=== PATIENT | male | born 1970 | race Caucasian/White ===

== ENCOUNTER 2016-12-14 09:26 | Emergency (ER) | payer BC ==
[2016-12-14 09:37] VITALS: BP 145/87
--- NOTE | 2016-12-14 10:34 | UC ---
Complaint Male HPI - HPI Summary HPI Summary: The patient comes in today for: 1. "I want to be tested for herpes": Onset: He has no symptoms. Palliative/provocative: Not applicable. Quality: Not applicable. Region: Genital Severity: n/a Time: n/a Associated symptoms: None. * - History of Current Complaint Chief Complaint: UCGeneralIllness Stated Complaint: PERSONAL Time Seen by Provider: 12/14/16 10:23 Hx Obtained From: Patient - Allergies/Home Medications Allergies/Adverse Reactions: Allergies Allergy/AdvReac Type Severity Reaction Status Date / Time No Known Allergies Allergy Verified 08/01/15 10:43 PMH/Surg Hx/FS Hx/Imm Hx Previously Healthy: No - Lower back pain. Respiratory History: Asthma - Surgical History Surgical History: None - Family History Known Family History: Positive: Cardiac Disease, Hypertension Family History: Unspecified "breathing and heart" problems - Social History Occupation: Employed Full-time Alcohol Use: Daily Alcohol Amount: "six pack a night" Substance Use Type: None Smoking Status (MU): Heavy Every Day Tobacco Smoker Type: Cigarettes Amount Used/How Often: 1 PPD Length of Time of Smoking/Using Tobacco: 30+ Years Have You Smoked in the Last Year: Yes When Did the Patient Quit Smoking/Using Tobacco: 04/23/15 - Immunization History Most Recent Influenza Vaccination: March 2016 Review of Systems Constitutional: Negative Skin: Negative Eyes: Negative ENT: Negative Respiratory: Negative Cardiovascular: Negative Gastrointestinal: Negative Genitourinary: Negative All Other Systems Reviewed And Are Negative: Yes Physical Exam Triage Information Reviewed: Yes Appearance: Well-Appearing, No Pain Distress, Well-Nourished Vital Signs: Initial Vital Signs Temp 97.7 F 12/14/16 09:30 Pulse 118 12/14/16 09:30 Resp 18 12/14/16 09:30 BP 145/87 12/14/16 09:30 Pulse Ox 97 12/14/16 09:30 Vital Signs Reviewed: Yes Eyes: Positive: Conjunctiva Clear. Negative: Discharge ENT: Positive: Hearing grossly normal. Negative: Pharyngeal erythema, Nasal congestion, Nasal drainage, TM bulging, TM dull, TM red, Tonsillar swelling, Tonsillar exudate Dental: Negative: Gross Decay/Caries @, Dental Fracture @ Neck: Positive: Supple, Nontender, No Lymphadenopathy. Negative: Nuchal Rigidity Respiratory: Positive: Lungs clear, No respiratory distress, No accessory muscle use. Negative: Crackles, Wheezing Cardiovascular: Positive: RRR, No Murmur Abdomen Description: Positive: Nontender, No Organomegaly, Soft. Negative: Distended, Guarding Musculoskeletal: Positive: Strength Intact, ROM Intact Neurological: Positive: Alert, Muscle Tone Normal Psychological: Positive: Age Appropriate Behavior, Consolable Skin: Negative: rashes, breakdown UC Physical Exam Vital Signs On Initial Exam: Initial Vitals Temp Pulse Resp BP Pulse Ox 97.7 F 118 18 145/87 97 12/14/16 09:30 12/14/16 09:30 12/14/16 09:30 12/14/16 09:30 12/14/16 09:30 - Genitalia Exam Male Genitalia: Other - Patient declined genital exam as he is not having any problems in that area at this time. Complaint Male Course/Dx - Course Course Of Treatment: The patient comes in today because his ex-girlfriend was told by her ex-boyfriend's present girlfriend that the ex-boyfriend has had herpes for years. Even though the patient's ex-girlfriend states that she has had "blisters down below" in the past, she "freaked out" when she was recently "tested for herpes" and told to be positive. The patient has not had any problems with genital lesions. Significant time was taken explaining the value of testing for herpes particularly in light of his history of having cold sores on his lips "every winter." After this discussion and answering all his questions, he did not want any blood tests for herpes-just GC and chlamydia. - Differential Dx/Diagnosis Provider Diagnoses: Possible STD exposure. Discharge - Discharge Plan Condition: Stable Disposition: HOME Patient Education Materials: Safe Sex (ED) Referrals: Non Staff,Doctor [Primary Care Provider] - If Needed (Please see your primary care provider as needed. If you have any problems, be seen again at that time.)
== END 2016-12-14 11:01 | disposition home or self-care (01) ==
LOC: UCCORT 09:26
DX: Z20.2 Contact with and (suspected) exposure to infections with a predominantly sexual mode of transmission (principal)
CPT/HCPCS: 87491; 87591; 99211; G0463

== ENCOUNTER 2017-02-10 09:31 | Emergency (ER) | payer BC ==
[2017-02-10 09:39] VITALS: BP 125/83
[2017-02-10] MEDS ORDERED: Albuterol/Ipratropium NEB.SOL* Albuterol 2.5 MG/Ipratropium 0.5 MG 3 ML INH ONE (09:42)
[2017-02-10] MEDS ORDERED: predniSONE TAB* 20 MG PO ONE (09:42)
--- NOTE | 2017-02-10 09:42 | UC ---
Respiratory Complaint HPI - HPI Summary HPI Summary: 46 YEAR OLD MALE PRESENTS WITH COMPLAINS OF COUGH AND WHEEZING. - History of Current Complaint Chief Complaint: UCRespiratory Stated Complaint: DIFFICULTY BREATHING Time Seen by Provider: 02/10/17 09:42 - Allergies/Home Medications Allergies/Adverse Reactions: Allergies Allergy/AdvReac Type Severity Reaction Status Date / Time No Known Allergies Allergy Verified 02/10/17 09:39 Home Medications: Home Medications Albuterol 0.5% CONC NEB.NORMA* 1 mg .SEE ORDER Q6H PRN 02/10/17 [History Confirmed 02/10/17] PMH/Surg Hx/FS Hx/Imm Hx Previously Healthy: Yes - Surgical History Surgical History: None - Family History Known Family History: Positive: Unknown, Cardiac Disease, Hypertension Family History: Unspecified "breathing and heart" problems - Social History Alcohol Use: Daily Alcohol Amount: "six pack a night" Substance Use Type: None Smoking Status (MU): Heavy Every Day Tobacco Smoker Type: Cigarettes Amount Used/How Often: 1 PPD Length of Time of Smoking/Using Tobacco: 30+ Years Have You Smoked in the Last Year: Yes When Did the Patient Quit Smoking/Using Tobacco: 04/23/15 Household Exposure Type: Cigars - Immunization History Most Recent Influenza Vaccination: March 2016 Review of Systems Constitutional: Negative Skin: Negative Eyes: Negative ENT: Sore Throat, Nasal Discharge, Sinus Congestion Respiratory: Cough Cardiovascular: Negative Gastrointestinal: Negative Genitourinary: Negative Motor: Negative Neurovascular: Negative Musculoskeletal: Negative Neurological: Negative Psychological: Negative All Other Systems Reviewed And Are Negative: Yes Physical Exam Triage Information Reviewed: Yes Vital Signs: Initial Vital Signs Temp 36.6 C 02/10/17 09:35 Pulse 108 02/10/17 09:35 Resp 20 02/10/17 09:35 BP 125/83 02/10/17 09:35 Pulse Ox 97 02/10/17 09:35 Eye Exam: Normal ENT: Positive: Pharyngeal erythema, Nasal congestion, Nasal drainage Dental Exam: Normal Neck exam: Normal Neck: Positive: 1 Respiratory: Positive: Wheezing Cardiovascular Exam: Normal Abdominal Exam: Normal Musculoskeletal Exam: Normal Neurological Exam: Normal Psychological Exam: Normal Skin Exam: Normal UC Diagnostic Evaluation - Laboratory O2 Sat by Pulse Oximetry: 97 Respiratory Course/Dx - Differential Dx/Diagnosis Provider Diagnoses: ASTHMA EXACERBATION Discharge - Discharge Plan Condition: Stable Disposition: HOME Prescriptions: Albuterol HFA INHALER* [Ventolin HFA Inhaler*] 2 puff INH Q6H PRN #1 mdi PRN Reason: Wheezing Azithromyxin MARVA (NF) [Z-Marva (Zithromax) 250 mg tabs #6] 2 tab PO .TODAY, THEN 1 DAILY #6 tab guaiFENesin/CODIEN 100MG-10MG* [Robitussin AC 100Mg-10Mg*] 5 ml PO Q6H PRN #120 ml MDD 20 ML PRN Reason: Cough predniSONE TAB* [Deltasone TAB*] 40 mg PO DAILY #10 tab Patient Education Materials: Asthma (ED) Forms: *Work Release Referrals: Non Staff,Doctor [Primary Care Provider] - If Needed
--- NOTE | 2017-02-10 10:16 | RAD ---
INDICATION: 2 days cough, shortness of breath. Negative for fever. COMPARISON: October 23, 2015 TECHNIQUE: Dual energy PA and routine lateral views of the chest were obtained. REPORT: Mildly elevated lung volumes. No focal pulmonary lesion, compelling alveolar consolidation, pleural effusion, pneumothorax. The heart, pulmonary vasculature, and mediastinal contours are unremarkable. Healed fractures of the RIGHT eighth and ninth ribs posteriorly. No acute rib fracture evident. IMPRESSION: 1. Mildly elevated lung volumes suggest potential chronic obstructive pulmonary disease given history of tobacco use. 2. No evidence for pneumonia.
== END 2017-02-10 10:34 | disposition home or self-care (01) ==
LOC: UCCORT 09:31
DX: J45.901 Unspecified asthma with (acute) exacerbation (principal); Z87.891 Personal history of nicotine dependence
CPT/HCPCS: 71020; 99212; A9270-GY; G0463; J7512

== ENCOUNTER 2017-05-23 08:39 | Emergency (ER) | payer SELFPAY ==
[2017-05-23 08:52] VITALS: BP 163/94
[2017-05-23] MEDS ORDERED: Ibuprofen TAB* 600 MG PO ONE (10:12)
--- NOTE | 2017-05-23 10:20 | UC ---
Upper Extremity HPI - HPI Summary HPI Summary: This is a 46 yo R handed male with asthma who presents with sudden onset R arm pain. Patient was at work lifting a heavy box and when lowering the box back to the floor he had a sudden onset of R arm pain in his mid humeral region. He now has limited arm extension due to severe pain. No fall or associated trauma. No history of prior injury to that arm - History of Current Complaint Chief Complaint: UCUpperExtremity Stated Complaint: ARM INJURY - Allergies/Home Medications Allergies/Adverse Reactions: Allergies Allergy/AdvReac Type Severity Reaction Status Date / Time No Known Allergies Allergy Verified 05/23/17 08:52 Home Medications: Home Medications Ephedrine-Guaifenesin [Bronkaid 25-400 mg] 1 tab PO BID PRN 05/23/17 [History Confirmed 05/23/17] Pantoprazole TAB (NF) [Protonix TAB (NF)] 1 tab PO BID 05/23/17 [History Confirmed 05/23/17] PMH/Surg Hx/FS Hx/Imm Hx Previously Healthy: No Respiratory History: Asthma GI/ History: Gastroesophageal Reflux - Surgical History Surgical History: None - Family History Known Family History: Positive: Unknown, Cardiac Disease, Hypertension Family History: Unspecified "breathing and heart" problems - Social History Alcohol Use: Weekly Alcohol Amount: 12 cans per week Substance Use Type: None Smoking Status (MU): Heavy Every Day Tobacco Smoker Type: Cigarettes Amount Used/How Often: 1 PPD Length of Time of Smoking/Using Tobacco: 30+ Years Have You Smoked in the Last Year: Yes When Did the Patient Quit Smoking/Using Tobacco: 04/23/15 Household Exposure Type: Cigarettes - Immunization History Most Recent Influenza Vaccination: 03/26 Review of Systems Constitutional: Negative Skin: Negative Eyes: Negative ENT: Negative Respiratory: Negative Cardiovascular: Negative Gastrointestinal: Negative Genitourinary: Negative Motor: Decreased ROM Neurovascular: Negative Musculoskeletal: Arthralgia, Decreased ROM Neurological: Negative Psychological: Negative Is Patient Immunocompromised?: No All Other Systems Reviewed And Are Negative: Yes Physical Exam Triage Information Reviewed: Yes Appearance: Pain Distress - mild to moderate with movement of the arm Vital Signs: Initial Vital Signs Temp 97.4 F 05/23/17 08:45 Pulse 106 05/23/17 08:45 Resp 18 05/23/17 08:45 BP 163/94 05/23/17 08:45 Pulse Ox 96 05/23/17 08:45 Vital Signs Reviewed: Yes ENT: Positive: Normal ENT inspection Neck: Positive: Supple, Nontender Respiratory: Positive: Chest non-tender, Lungs clear. Negative: Crackles, Rhonchi, Wheezing Cardiovascular: Positive: RRR, No Murmur Abdomen Description: Positive: Nontender Musculoskeletal: Positive: Strength Limited @ - biceps flexion, ROM Limited @ - R elbox extension due to pain, Other: - positive "Pop-eye" sign, positive Hook test Neurological: Positive: Alert, Muscle Tone Normal Psychological: Positive: Normal Response To Family Skin: Positive: Other - mild ecchymosis on the volar medial aspect of the elbow Diagnostics - Laboratory Diagnostic Studies Completed/Ordered: XR elbow - no evidence of acute fracture. XR humerus - no evidence of acute fracture Upper Extremity Course/Dx - Course Course Of Treatment: This is a 46 yo male who had a sudden onset of severe R arm pain when lowering a heavy load. Exam is consistent with suspected distal biceps tendon rupture. Spoke with Dr Rose regarding management who recommended applying a sling and f/u in 2-3 days. - Differential Dx/Diagnosis Differential Diagnosis/HQI/PQRI: Fracture (Closed), Hematoma, Strain, Sprain Provider Diagnoses: Suspected distal biceps tendon rupture - Right - Physician Notification/Consults Discussed Patient Care With: Dr Rose - orthopedic surgery - recommended immobilization in a sling and f/u within 2-3d Instructed by Provider To: Have Pt Call For Appt. - 2-3 days Discharge - Discharge Plan Condition: Stable Disposition: HOME Prescriptions: HYDROcodone/ACETAMIN 5-325 MG* [[place] 5-325 TAB*] 1 tab PO Q6HR PRN #30 tab MDD 4 tabs PRN Reason: Pain Patient Education Materials: Tendon Rupture (ED) Forms: *Work Release Referrals: Cristino Rose MD [Medical Doctor] - 2 Days Non Staff,Doctor [Primary Care Provider] - Additional Instructions: Instructions: 1. Please call the office of Dr Rose and request a follow up within the next 2 -3d 2. Keep the arm in the sling for comfort, you may take it out occasionally to do some gentle range of motion 3. Do not attempt to lift anything with the arm 4. Ice 3-4 times daily for 10-15 min
--- NOTE | 2017-05-23 10:37 | RAD ---
HISTORY: Right arm injury COMPARISONS: None VIEWS: 5, Frontal and lateral views of the right elbow with frontal internal and external rotation views of the right humerus FINDINGS: BONE DENSITY: Normal. BONES: There is no acute displaced fracture. There is a well-corticated bone fragment along the coronoid process of the ulna suggestive of remote fracture. JOINTS: There is mild osteoarthritis of the AC joint and of the ulnar trochlear articulation. ALIGNMENT: There is no dislocation. SOFT TISSUES: Unremarkable. OTHER FINDINGS: None. IMPRESSION: 1. WELL-CORTICATED BONE FRAGMENT ALONG THE CORONOID PROCESS OF THE ULNA SUGGESTIVE OF REMOTE FRACTURE. 2. OSTEOARTHRITIS. 3. NO ACUTE OSSEOUS INJURY OF THE RIGHT ELBOW OR HUMERUS. IF SYMPTOMS PERSIST, RECOMMEND REPEAT IMAGING
== END 2017-05-23 11:07 | disposition home or self-care (01) ==
LOC: UCEAST 08:39
DX: M79.621 Pain in right upper arm (principal); J45.909 Unspecified asthma, uncomplicated; K21.9 Gastro-esophageal reflux disease without esophagitis; Z72.0 Tobacco use; Z72.89 Other problems related to lifestyle; X50.9XXA Other and unspecified overexertion or strenuous movements or postures, initial encounter; X50.0XXA Overexertion from strenuous movement or load, initial encounter; Y93.89 Activity, other specified; Y92.89 Other specified places as the place of occurrence of the external cause; Y99.0 Civilian activity done for income or pay
CPT/HCPCS: 99213; A9270-GY; G0463

== ENCOUNTER 2017-06-06 07:55 | Day surgery (SDC) | payer BC, OTHER ==
--- NOTE | 2017-05-25 11:16 | HP ---
AMENDED REPORT NOW INCLUDES COSIGNER DESIGNATION - ESIGNED BEFORE ADJUSTMENTS PREOPERATIVE HISTORY AND PHYSICAL: DATE OF ADMISSION/SURGERY: 06/06/17 ATTENDING SURGEON: Hannah Benoit MD * (DICTATED BY LISA PETERS) PROCEDURE: Right distal biceps tendon repair. CHIEF COMPLAINT: Right elbow. HISTORY OF PRESENT ILLNESS: Tommie is a 46-year-old male who presents to the clinic for a right distal biceps tendon rupture that occurred at work when he was moving a heavy box and he felt a sudden pop in his elbow. This occurred on 05/23/17. He has failed conservative measures and therefore, agreed to undergo a right distal biceps tendon repair with Dr. Benoit on 06/06/17. PAST MEDICAL HISTORY: 1. Asthma. 2. GERD. 3. Alcoholism. PAST SURGICAL HISTORY: Colonoscopy and endoscopy. He denies prior complications to anesthesia. MEDICATIONS: 1. Pantoprazole sodium 20 mg 1 by mouth every day. 2. Albuterol sulfate 2.5 mg/3 mL, 0.083%, 1 vial via nebulizer 4 times a day as needed. ALLERGIES: No known drug allergies. FAMILY HISTORY: Positive for heart disease, diabetes, cancer. Denies prior history of DVT or PE. SOCIAL HISTORY: The patient is a current smoker, smokes 1 to 1-1/2 packs per day. He has done this for 20 years. 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 He reports occasional alcohol consumption. He denies illicit drug use. REVIEW OF SYSTEMS: General: Negative fevers, chills, night sweats. No known anesthesia problems. HEENT: Negative for headache or syncopal episodes. Integumentary: Negative for abrasions, lesions, or open wounds. Cardiothoracic : Negative for chest pain, palpitations or hypertension. Pulmonary: Positive for shortness of breath occasionally due to asthma. Denies COPD. GI: Negative for nausea, vomiting, diarrhea, constipation. Positive for GERD. : Negative for nocturia or history of UTIs. Musculoskeletal: Positive for current complaint. Neuro: Negative for numbness and tingling, history of seizure, stroke, or epilepsy. Endocrine: Negative for diabetes or thyroid issues. Heme: Negative for easy bruising, history of bleeding disorder, or history of DVT. Infectious Disease: Negative for history of MRSA, hep C, or HIV. PHYSICAL EXAMINATION GENERAL: A well-developed, well-nourished 46-year-old male, in no acute distress, alert and oriented x3. Appropriate mood and affect. VITAL SIGNS: Height 69, weight 225. Pulse 88, blood pressure 151/93, respiratory rate 16. BMI 33.2. HEENT: Normocephalic, atraumatic. PERRLA. Throat clear. NECK: Supple. PULMONARY: Lungs are clear to auscultation bilaterally. No wheezing, rhonchi, or rales. CARDIO: Regular rate and rhythm. S1, S2. No murmurs, gallops, or rubs. No edema. ABDOMEN: Positive bowel sounds. Soft and nontender. NEURO: Alert and oriented x3. Cranial nerves grossly intact. Sensation is intact to light touch. MUSCULOSKELETAL: Right upper extremity, skin is intact. No warmth or erythema. There is some edema about the elbow. Tenderness to palpation over the antecubital space. The distal biceps tendon is not intact to palpation. Full range of motion of the wrist. +5/5 legal researcher strength. +2 radial pulse. Sensation intact to light touch distally. IMPRESSION: Right distal biceps tendon tear. PLAN: The patient is scheduled to undergo a right distal biceps tendon repair with Dr. Benoit, on 06/06/17. He will follow up 9 to 10 days postop for postop followup and suture removal. A script for Hold[place] was sent to his pharmacy for postop pain management. LISA PETERS [id number]/[facility] #: [id number] [facility]ENTERDapnhe
[~2017-06-06 07:55] MED LIST: Buffered Lidocaine 0.9% SYRIN* 5 ML/SYR SYRINGE INTRADERM ONE
[2017-06-06] MEDS ORDERED: Bupivacaine 0.5% W/EPI SDV* 30 ML VIAL ONE ×2 (08:48→09:37)
[2017-06-06] MEDS ORDERED: Bupivacaine 0.5% SDV PF* 30 ML VIAL ONE (08:48)
[2017-06-06] MEDS ORDERED: Lidocaine 1% INJ* 10 MG/ML 30 ML SDV ONE (08:48)
[2017-06-06] MEDS ORDERED: fentaNYL* 50 MCG/ML 2 ML VIAL (100 MCG VIAL) ONE (08:57)
[2017-06-06] MEDS ORDERED: Midazolam* 1 MG/ML 2 ML VIAL (2 MG) ONE ×2 (08:57→09:00)
[2017-06-06] MEDS ORDERED: ceFAZolin 2 GM PREMIX (*) 2 GM/50 ML BAG IVPB ONE (09:00)
[2017-06-06] MEDS ORDERED: Propofol* 10 MG/ML 20 ML BTL IV PUSH ONE (10:28)
[2017-06-06] MEDS ORDERED: Ondansetron INJ* 2 MG/ML VIAL ONE (10:28)
[2017-06-06] MEDS ORDERED: Dexamethasone IV* 4 MG/ML 1 ML (4 MG) ONE (10:28)
[2017-06-06] MEDS ORDERED: Lidocaine 2% PF * 5 ML VIAL ONE (10:28)
[2017-06-06] MEDS ORDERED: HYDROmorphone INJ* 1 MG/ML CARPUJECT SYRINGE ONE (11:30)
[2017-06-06] MEDS ORDERED: hydrALAZINE IV* 20 MG/ML VIAL ONE (11:46)
[2017-06-06] MEDS ORDERED: HYDROcodone/ACETAMIN 5-325 MG* 1 TAB ONE ×2 (11:55→12:38)
[2017-06-06] MEDS ORDERED: Labetalol IV* 5 MG/ML 20 ML VIAL ONE (12:18)
[2017-06-06 13:04] VITALS: BP 138/79
--- NOTE | 2017-06-07 04:20 | OP ---
DATE OF OPERATION: 06/06/17 - [facility] DATE OF : 66 SURGEON: Hannah Benoit MD ELECTRODE TURNER AND FINISHER: LISA Barrera ANESTHESIA: General and block. PRE-OP DIAGNOSIS: Right distal biceps tendon rupture. POST-OP DIAGNOSIS: Right distal biceps tendon rupture. OPERATIVE PROCEDURE: Right distal biceps tendon repair. ESTIMATED BLOOD LOSS: Zero. TOURNIQUET TIME: About 45 minutes. INDICATIONS FOR PROCEDURE: Tommie is a 46-year-old man who ruptured his distal biceps tendon while lifting heavy boxes at work. He presents for right distal biceps tendon repair. DESCRIPTION OF PROCEDURE: The patient was brought to the operating room, was given a block and general anesthetic. The skin of his right upper extremity was prepped and draped in the usual sterile fashion. The upper extremity was exsanguinated and the tourniquet elevated to 250 mmHg. A curvilinear incision was made across the elbow flexion crease. We dissected bluntly through the subcutaneous tissue. The superficial vessels were carefully dissected out and the biceps tendon located in the upper arm. It was released from adhesions and brought down deep to the superficial vessels and then a whipstitch was placed in it with #7 Maxbraid suture and secured to the ToggleLoc implant. Next, we dissected down to the biceps tuberosity on the radius and Hohmann retractors were placed around the radius. A guide-wire was placed through both cortices of the proximal radius and then reamed over the proximal cortex with a 4.5, 4.6 , 4.7 and 4.8 mm reamer. The 4.5 mm reamer was then driven across the far cortex and the ToggleLoc was placed through both holes and toggled to secure the ZipLoop suture on the far aspect of the radius. The ZipLoop was then used to draw the biceps tendon down into the 8 mm hole. There was excellent tension on the biceps tendon. The wound was copiously irrigated with saline. Subcutaneous tissue was closed with 2-0 Polysorb and the skin with skin ariel. The wound was dressed with Xeroform, 4x4, Webril and an Johnathon wrap and the patient was placed in an elbow range of motion brace with 60 to 90 degrees of flexion. The patient was awaken from general anesthesia and brought to the recovery room in good condition. [id number]/[facility] #: [id number] JORGE L
== END 2017-06-06 13:30 | disposition home or self-care (01) ==
LOC: OREAST 07:55
PROVIDERS: ATTEND Orthopaedic Surgery
DX: S46.211A Strain of muscle, fascia and tendon of other parts of biceps, right arm, initial encounter (principal); X50.0XXA Overexertion from strenuous movement or load, initial encounter; Y92.9 Unspecified place or not applicable; E66.9 Obesity, unspecified; F17.210 Nicotine dependence, cigarettes, uncomplicated; J45.909 Unspecified asthma, uncomplicated; K21.9 Gastro-esophageal reflux disease without esophagitis; G89.18 Other acute postprocedural pain; Z68.33 Body mass index [BMI] 33.0-33.9, adult
CPT/HCPCS: J0360; J0690; J1100; J1170; J2250; J2405; J2704; J3010

== ENCOUNTER 2017-07-03 13:43 | Emergency (ER) | payer OTHER ==
--- OUTSIDE RECORDS SUMMARY | 2017-07-03 13:50 | XMS REPORT ---
:1970 External Reference #:[id number] Author Organization [facility] Address [address] [address] Phone [phone] Care Team Providers Name Role Phone Patient's Choice Primary Care Physician Unavailable Payers Type Date Identification Numbers Payment Provider Subscriber Workers Compensation Effective: Policy Number: [employer] Tommie Zamudio 2017 [id number] Onset: 2017 Group Name: rizwan [phone] [address] [address] PayID: [id number] [place] [address] Workers Compensation Onset: 2014 Policy Number: [employer] Tommie Zamudio [id number] PayID: [id number] [address] [address] [place] [address] Problems Date Description Provider Status Onset: 05/24/2017 Nontraumatic rupture of muscle Hannah Benoit M.D. 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 hours as needed pain Elbow Brace 06/02/ Active Misc Wear as Hannah Benoit s/p r M.D. distal biceps repair Hydrocodone-Ac 05/24/ Active Tablets 5-325mg 40tab take 1-2 Hannah etaminwillow 2016 s tablet by Benoit, mouth M.D. every 4-6 hours as needed pain. Do not fill until 06/04/17. Do not take before surgery Pantoprazole 00/ Active Tablets DR 20mg 1 by mouth Unknown Sodium 0000 every day Albuterol / Active Nebulizer (2.5mg/3ML 1 vial via Unknown Sulfate 0000 ) 0.083% nebulizer 4 times daily as needed [place] 06/24/ Hx Tablets 5-325mg 30tab 1-2 by Hannah 2013 - s mouth Benoit, 07/10/ every 4 M.D. 2017 hours as needed [place] 09/04/ Hx Tablets 10-325mg 60tab 1-2 PO martinad Cecil Nolen 2007 - s juarezn Marcella, 06/22/ M.D. 2013 Hydrocodone / Hx Unknown 0000 - 2016 Vital Signs Date Vital Result Comment 06/15/2017 Height 69 inches 5'9" Weight 225.00 lb BP Systolic 148 mmHg BP Diastolic 90 mmHg Body Temperature 97.4 F Pain Level 5 BMI (Body Mass Index) 33.2 kg/m2 05/24/2017 Height 69 inches 5'9" Weight 225.00 lb Heart Rate 88 /min BP Systolic 151 mmHg BP Diastolic 93 mmHg Respiratory Rate 16 /min BMI (Body Mass Index) 33.2 kg/m2 08/20/2014 Heart Rate 86 /min BP Systolic Sitting 128 mmHg BP Diastolic Sitting 88 mmHg 08/06/2014 Heart Rate 86 /min BP Systolic Sitting 132 mmHg BP Diastolic Sitting 80 mmHg 07/14/2014 Heart Rate 80 /min BP Systolic Sitting 148 mmHg BP Diastolic Sitting 98 mmHg 06/23/2014 Height 69 inches 5'9" Weight 280.00 lb Heart Rate 84 /min BP Systolic 142 mmHg BP Diastolic 87 mmHg BMI (Body Mass Index) 41.3 kg/m2 Results Description No Information Procedures Date CPT Code Description Status 08/06/2014 55000 Rad Exam; Ankle Comp Completed 07/14/2014 62467 Rad Exam; Ankle Comp Completed 06/23/2014 97989 CLTX Posterior Malleolus FX W/Out Manipulation Completed 06/23/2014 26775 CLTX Posterior Malleolus FX W/Out Manipulation Completed Encounters Type Date Location Provider CPT E/M Dx Office Visit 05/24/2017 [facility] Hannah Benoit, 16122 M62.121 10:00a Of [facility] M62.121 M62.121 Office Visit 10/16/2007 10:00a [facility] Cecil Naranjo 24474 722.10 Of [facility] M.D. Office Visit 09/04/2007 9:30a [facility] Cecil Naranjo [id number] 722.10 Of [facility] M.D. Office Visit 07/23/2007 11:00a [facility] Cecil Naranjo 48162 722.10 Of [facility] M.D. Office Visit 06/11/2007 11:30a [facility] Cecil Naranjo [id number] 722.10 Of [facility] M.D. Office Visit 04/09/2007 9:00a [facility] Cecil Naranjo [id number] 722.10 Of [facility] M.D. Office Visit 02/20/2007 10:30a [facility] Cecil Naranjo [id number] 722.10 Of [facility] M.D. Office Visit 01/08/2007 10:30a [facility] Cecil Naranjo [id number] 722.10 Of [facility] M.D. Office Visit 11/27/2006 11:00a [facility] Cecil Naranjo [id number] 722.10 Of [facility] M.D. Office Visit 10/16/2006 9:30a [facility] Cecil Naranjo [id number] 722.10 Of [facility] M.D. Office Visit 09/04/2006 9:30a [facility] Cecil Naranjo [id number] 722.10 Of [facility] M.D. Office Visit 07/25/2006 10:00a [facility] Cecil Naranjo [id number] 722.10 Of [facility] M.DNilsa Plan of Care Future Appointment(s):06/21/2017 10:15 am - Hannah Benoit M.D. at [facility]/15/2017 - Hannah Benoit M.D.M62.121 Other rupture of muscle (nontraumatic), right upper armFollow up:Follow up: next wed
--- OUTSIDE RECORDS SUMMARY | 2017-07-03 13:50 | XMS REPORT ---
:1970 External Reference #:[id number] Author Organization [employer] Address [address] [address] Phone [phone] Care Team Providers Name Role Phone Patient's Choice Primary Care Physician Unavailable Payers Type Date Identification Numbers Payment Provider Subscriber Workers Compensation Effective: Policy Number: [employer] Tommie Zamudio 2017 [id number] Onset: 2017 Group Name: rizwan [phone] [address] [address] PayID: [id number] [place] [address] Workers Compensation Onset: 2014 Policy Number: [place] [employer] Tommie Zamudio [id number] PayID: [id number] [address] [address] [place] [address] Problems Date Description Provider Status Onset: 05/24/2017 Nontraumatic rupture of muscle Hannah Benoit M.D. 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 distal biceps repair Pantoprazole / Active Tablets DR 20mg 1 by mouth Unknown Sodium 0000 every day Albuterol / Active Nebulizer (2.5mg/3ML 1 vial via Unknown Sulfate 0000 ) 0.083% nebulizer 4 times daily as needed Tramadol 06/06/ Hx Tablets 37.5-325mg 20tab 1-2 tab by Hannah 2016 - mouth Benoit, Acetaminophen 06/19/ every 4-6 M.D. 2017 hours as needed pain Hydrocodone-Ac 05/24/ Hx Tablets 5-325mg 40tab take 1-2 Hannah etaminophen 2016 tablet by Cy, 06/19/ mouth M.D. 2017 every 4-6 hours as needed pain. Do not fill until 06/04/17. Do not take before surgery [place] 06/24/ Hx Tablets 5-325mg 30tab 1-2 by Hannah 2013 - mouth Benoit, 07/10/ every 4 M.D. 2017 hours as needed [facility] 09/04/ Hx Tablets 10-325mg 60tab 1-2 PO qid Cecil Nolen 2007 - s margareth Naranjo, 06/22/ M.D. 2013 Hydrocodone / Hx Unknown 0000 - 2016 Vital Signs Date Vital Result Comment 06/21/2017 Height 69 inches 5'9" Weight 225.00 lb Respiratory Rate 12 /min Pain Level 3 BMI (Body Mass Index) 33.2 kg/m2 06/15/2017 Height 69 inches 5'9" Weight 225.00 [...] Information Procedures Date CPT Code Description Status 06/06/2017 35847 reinsertion ruptured biceps or triceps tendon,distal Completed with or w/o 08/06/2014 98545 Rad Exam; Ankle Comp Completed 07/14/2014 11984 Rad Exam; Ankle Comp Completed 06/23/2014 42754 CLTX Posterior Malleolus FX W/Out Manipulation Completed 06/23/2014 97158 CLTX Posterior Malleolus FX W/Out Manipulation Completed Encounters Type Date Location Provider CPT E/M Dx Office Visit 05/24/2017 [facility] Hannah Benoit, 23211 M62.121 10:00a Of Rohit Mcclain M62.121 M62.121 Office Visit 10/16/2007 10:00a [facility] Cecil Naranjo 06512 722.10 Of Nuclear Equipment Test Engineer M.D. Office Visit 09/04/2007 9:30a [facility] Cecil Naranjo 89056 722.10 Of Nuclear Equipment Test Engineer M.D. Office Visit 07/23/2007 11:00a [facility] Cecil Naranjo 19162 722.10 Of Nuclear Equipment Test Engineer M.D. Office Visit 06/11/2007 11:30a [facility] Cecil Naranjo 51834 722.10 Of Nuclear Equipment Test Engineer M.D. Office Visit 04/09/2007 9:00a [facility] Cecil Naranjo 58958 722.10 Of Nuclear Equipment Test Engineer M.D. Office Visit 02/20/2007 10:30a [facility] Cecil Naranjo 59899 722.10 Of Nuclear Equipment Test Engineer M.D. Office Visit 01/08/2007 10:30a [facility] Cecil Naranjo 14256 722.10 Of Nuclear Equipment Test Engineer M.D. Office Visit 11/27/2006 11:00a [facility] Cecil Naranjo 01816 722.10 Of Nuclear Equipment Test Engineer M.D. Office Visit 10/16/2006 9:30a [facility] Cecil Naranjo 11318 722.10 Of Nuclear Equipment Test Engineer M.D. Office Visit 09/04/2006 9:30a [facility] Cecil Naranjo 42229 722.10 Of Nuclear Equipment Test Engineer M.D. Office Visit 07/25/2006 10:00a [facility] Cecil Naranjo 33381 722.10 Of Nuclear Equipment Test Engineer M.D. Plan of Care Future Appointment(s):07/05/2017 10:30 am [facility]
[2017-07-03] MEDS ORDERED: Cephalexin CAP* 500 MG PO ONE ×3 (14:31→15:31)
--- NOTE | 2017-07-03 14:45 | UC ---
Upper Extremity HPI - HPI Summary HPI Summary: 46 Y/O male presents with C/O pain and drainage from surgical wound. States began with redness 3 days ago. Has been applying warm compresses and noted yellow "creamy" drainage last night and earlier today. Redness noted over 1 cm area of incision. No drainage at this time. All other areas of incision are intact and healing. Denies fever or chills. Medical history and medications reviewed at this visit. HTN is elevated, patient is aware of elevated blood pressure and states will follow up and establish with a primary medical provider. - History of Current Complaint Chief Complaint: UCUpperExtremity Stated Complaint: CHECK WOUND ON ARM Time Seen by Provider: 07/03/17 14:20 Hx Obtained From: Patient Onset/Duration: Gradual Onset, Lasting Days Severity Initially: Mild Severity Currently: Mild Pain Intensity: 4 Pain Scale Used: 0-10 Numeric Character: Dull Aggravating Factor(s): Other - Pressure Alleviating Factor(s): Nothing Associated Signs And Symptoms: Positive: Swelling, Redness - Risk Factors Non-Orthopedic Risk Factor: Negative DVT Risk Factors: Negative Septic Arthritis Risk Factor: Negative Compartment Syndrome Risk Factors: Pain - Allergies/Home Medications Allergies/Adverse Reactions: Allergies Allergy/AdvReac Type Severity Reaction Status Date / Time No Known Allergies Allergy Verified 07/03/17 13:53 PMH/Surg Hx/FS Hx/Imm Hx Previously Healthy: Yes - Surgical History Surgical History: Yes Surgery Procedure, Year, and Place: 06/06/2017 bicep/tendon rpr - Family History Known Family History: Positive: Unknown, Cardiac Disease, Hypertension Family History: Unspecified "breathing and heart" problems - Social History Alcohol Use: Weekly Alcohol Amount: 12- 24 cans per week Substance Use Type: None Smoking Status (MU): Heavy Every Day Tobacco Smoker Type: Cigarettes Amount Used/How Often: 1 PPD for 20 yrs Length of Time of Smoking/Using Tobacco: 30+ Years Have You Smoked in the Last Year: Yes When Did the Patient Quit Smoking/Using Tobacco: 04/23/15 Household Exposure Type: Cigarettes - Immunization History Most Recent Influenza Vaccination: 03/26 Most Recent Tetanus Shot: within 10yrs Review of Systems Constitutional: Negative Skin: Other - redness Eyes: Negative ENT: Negative Respiratory: Negative Cardiovascular: Negative Gastrointestinal: Negative Genitourinary: Negative Motor: Negative Neurovascular: Negative Musculoskeletal: Negative Neurological: Negative Psychological: Negative Is Patient Immunocompromised?: No All Other Systems Reviewed And Are Negative: No Physical Exam Triage Information Reviewed: Yes Appearance: Well-Appearing Vital Signs: Initial Vital Signs Temp 99.6 F 07/03/17 13:56 Pulse 114 07/03/17 13:56 Resp 18 07/03/17 13:56 BP 174/92 07/03/17 13:56 Pulse Ox 97 07/03/17 13:56 Vital Signs Reviewed: Yes Musculoskeletal Exam: Normal Neurological Exam: Normal Psychological Exam: Normal Skin Exam: Other Skin: Positive: Other - Redness to R are incision Upper Extremity Course/Dx - Differential Dx/Diagnosis Differential Diagnosis/HQI/PQRI: Other - Incision site infection Provider Diagnoses: Incision site infection right forearm Discharge - Discharge Plan Condition: Stable Disposition: HOME Prescriptions: Cephalexin CAP* [Keflex CAP*] 500 mg PO QID #24 cap Patient Education Materials: Wound Infection (ED) Referrals: No Primary Care Phys,NOPCP [Primary Care Provider] - Additional Instructions: Please call Dr Benoit in AM to report infection to incision site. Take antibiotic as ordered. Your blood pressure was elevated, you need to establish with a primary medical provider for treatment. You may return to the urgent care as needed.
[2017-07-03] MEDS ORDERED: Cephalexin CAP* 250 MG PO ONE (14:59)
[2017-07-03] MEDS ORDERED: Cephalexin CAP* 500 MG ONE (15:02)
[2017-07-03 15:13] VITALS: BP 164/99
== END 2017-07-03 15:35 | disposition home or self-care (01) ==
LOC: UCEAST 13:43
DX: T81.4XXA Infection following a procedure, initial encounter (principal); Z72.89 Other problems related to lifestyle; Z87.891 Personal history of nicotine dependence; I10 Essential (primary) hypertension
CPT/HCPCS: 99212; A9270-GY; G0463

== ENCOUNTER 2017-07-29 09:22 | Emergency (ER) | payer BC, OTHER ==
--- OUTSIDE RECORDS SUMMARY | 2017-07-29 09:36 | XMS REPORT ---
:1970 External Reference #:[id number] Author Organization [facility] [employer] Address [address] [address] Phone [phone] Care Team Providers Name Role Phone Patient's Choice Primary Care Physician Unavailable Payers Type Date Identification Numbers Payment Provider Subscriber Workers Compensation Effective: Policy Number: [place] [employer] Tommie Zamudio 2017 [id number] Onset: 2017 Group Name: rizwan [phone] [address] [address] PayID: [id number] [place] [address] Workers Compensation Onset: 2014 Policy Number: [place] [employer] Tommie Zamudio [id number] PayID: [id number] [address] [address] [place] [address] Problems Date Description Provider Status Onset: 05/24/2017 Nontraumatic rupture of muscle Hannah Benoit M.D. 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 2017 hours as needed pain Hydrocodone-Ac 05/24/ Hx Tablets 5-325mg 40tab take 1-2 Hannah etaminophen 2016 - tablet by Cy, 06/19/ mouth M.D. 2017 every 4-6 hours as needed pain. Do not fill until 06/04/17. Do not take before surgery [place] 06/24/ Hx Tablets 5-325mg 30tab 1-2 by Hannah 2013 - s mouth Benoit, 07/10/ every 4 M.D. 2017 hours as needed [place] 09/04/ Hx Tablets 10-325mg 60tab 1-2 PO qid Cecil Nolen 2007 - s margareth Naranjo, 06/22/ M.D. 2013 Hydrocodone / Hx Unknown 0000 - 2016 Vital Signs Date Vital Result Comment 07/19/2017 Height 69 inches 5'9" Weight 229.00 lb Heart Rate 97 /min BP Systolic 170 mmHg BP Diastolic 100 mmHg Body Temperature 97.2 F BMI (Body Mass Index) 33.8 kg/m2 2017 Height 69 inches 5'9" Weight 225.00 lb Heart Rate 84 /min BP Systolic 190 mmHg BP Diastolic 110 mmHg Respiratory Rate 22 /min Body Temperature 97.6 F Pain Level 3 BMI (Body Mass Index) 33.2 kg/m2 07/05/2017 Height 69 inches 5'9" Weight 225.00 lb Respiratory Rate 14 /min Pain Level 4 BMI (Body Mass Index) 33.2 kg/m2 06/21/2017 Height 69 inches 5'9" Weight 225.00 [...] Procedures Date CPT Code Description Status 06/06/2017 62110 reinsertion ruptured biceps or triceps tendon,distal Completed with or w/o 06/06/2017 71317 reinsertion ruptured biceps or triceps tendon,distal Completed with or w/o 08/06/2014 97891 Rad Exam; Ankle Comp Completed 07/14/2014 73760 Rad Exam; Ankle Comp Completed 06/23/2014 76671 CLTX Posterior Malleolus FX W/Out Manipulation Completed 06/23/2014 62350 CLTX Posterior Malleolus FX W/Out Manipulation Completed Encounters Type Date Location Provider CPT E/M Dx Office Visit 05/24/2017 [facility] Hannah Benoit, 617[address] M62.121 10:00a Of Rohit Mcclain M62.121 M62.121 Office Visit 10/16/2007 10:00a [facility] Cecil Naranjo 392[address] 722.10 Of [facility] M.DNilsa Office Visit 09/04/2007 9:30a [facility] Ceicl Naranjo 61567 722.10 Of Application Integration Engineer M.DNilsa Office Visit 07/23/2007 11:00a [facility] Cecil Naranjo 01609 722.10 Of Reyes Mcclain Office Visit 06/11/2007 11:30a [facility] Cecil Naranjo 07209 722.10 Of [facility] M.DNilsa Office Visit 04/09/2007 9:00a [facility] Cecil Naranjo 90092 722.10 Of [facility] Sarahi Office Visit 02/20/2007 10:30a [facility] Cecil Naranjo 28365 722.10 Of Reyes Mcclain Office Visit 01/08/2007 10:30a [facility] Cecil Naranjo, 25438 722.10 Of Reyes M.Valeyr Office Visit 11/27/2006 11:00a [facility] Cecil Naranjo, 84000 722.10 Of Reyes MSharath Office Visit 10/16/2006 9:30a [facility] Cecil Naranjo, 34881 722.10 Of Reyes Mcclain Office Visit 09/04/2006 9:30a [facility] Cecil Naranjo, 54656 722.10 Of Reyes Mcclain Office Visit 07/25/2006 10:00a [facility] Cecil Naranjo, 08188 722.10 Of Reyes Mcclain Plan of Care Future Appointment(s):08/16/2017 8:30 am - Hannha Benoit M.D. at [facility].07/19/2017 - Hannah Benoit M.D.M62.121 Other rupture of muscle (nontraumatic), right upper armNew Therapy:Physical TherapyFollow up: Follow up: 4 weeks
--- OUTSIDE RECORDS SUMMARY | 2017-07-29 09:37 | XMS REPORT ---
:1970 External Reference #:[id number] Author Organization [facility] [employer] Address [address] [address] Phone [phone] Care Team Providers Name Role Phone Patient's Choice Primary Care Physician Unavailable Payers Type Date Identification Numbers Payment Provider Subscriber Workers Compensation Effective: Policy Number: [place] [employer] Tommie Zamudio 2017 [id number] Onset: 2017 Group Name: rizwan [phone] [address] [address] PayID: [id number] [place] [address] Workers Compensation Onset: 2014 Policy Number: [employer] [employer] Tommie Zamudio [id number] PayID: [id number] [address] [address] [place] [address] Problems Date Description Provider Status Onset: 05/24/2017 Nontraumatic rupture of muscle Hannah Benoit M.D. 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 Do not take before surgery [place] 06/24/ Hx Tablets 5-325mg 30tab 1-2 by Hannah 2013 - s mouth Benoit, 07/10/ every 4 M.D. 2017 hours as needed [place] 09/04/ Hx Tablets 10-325mg 60tab 1-2 PO qid Cecil Nolen 2007 - s margareth Naranjo, 06/22/ M.D. 2013 Hydrocodone / Hx Unknown 0000 - 2016 Vital Signs Date Vital Result Comment 07/05/2017 Height 69 inches 5'9" Weight 225.00 [...] Procedures Date CPT Code Description Status 06/06/2017 84396 reinsertion ruptured biceps or triceps tendon,distal Completed with or w/o 06/06/2017 12310 reinsertion ruptured biceps or triceps tendon,distal Completed with or w/o 08/06/2014 82778 Rad Exam; Ankle Comp Completed 07/14/2014 81392 Rad Exam; Ankle Comp Completed 06/23/2014 83289 CLTX Posterior Malleolus FX W/Out Manipulation Completed 06/23/2014 06922 CLTX Posterior Malleolus FX W/Out Manipulation Completed Encounters Type Date Location Provider CPT E/M Dx Office Visit 05/24/2017 [facility] Hannah Benoit, 81395 M62.121 10:00a Of Rohit Mcclain M62.121 M62.121 Office Visit 10/16/2007 10:00a [facility] Cecil Naranjo 08030 722.10 Of Car Usher M.D. Office Visit 09/04/2007 9:30a [facility] Cecil Naranjo 02964 722.10 Of Car Usher M.D. Office Visit 07/23/2007 11:00a [facility] Cecil Naranjo 72683 722.10 Of Car Usher M.D. Office Visit 06/11/2007 11:30a [facility] Cecil Naranjo 37579 722.10 Of Car Usher M.D. Office Visit 04/09/2007 9:00a [facility] Cecil Naranjo 19189 722.10 Of Car Usher M.D. Office Visit 02/20/2007 10:30a [facility] Cecil Naranjo 42304 722.10 Of Car Usher M.D. Office Visit 01/08/2007 10:30a [facility] Cecil Naranjo 05489 722.10 Of Car Usher M.D. Office Visit 11/27/2006 11:00a [facility] Cecil Naranjo 76752 722.10 Of Car Usher M.D. Office Visit 10/16/2006 9:30a [facility] Cecil Naranjo 63441 722.10 Of Car Usher M.D. Office Visit 09/04/2006 9:30a [facility] Cecil Naranjo, 17215 722.10 Of Reyes Mcclain Office Visit 07/25/2006 10:00a [facility] Cecil Naranjo, 28126 722.10 Of Reyes Mcclain Plan of Care Future Appointment(s):07/19/2017 8:30 am - Hannah Benoit M.D. at [facility].07/05/2017 - Hannah Benoit M.D.M62.121 Other rupture of muscle (nontraumatic), right upper armFollow up:Follow up: 2 weeks
--- OUTSIDE RECORDS SUMMARY | 2017-07-29 09:37 | XMS REPORT ---
:1970 External Reference #:[id number] Author Organization [facility] [employer] Address [address] [address] Phone [phone] Care Team Providers Name Role Phone Patient's Choice Primary Care Physician Unavailable Payers Type Date Identification Numbers Payment Provider Subscriber Workers Compensation Effective: Policy Number: [place] [employer] Tommie Zamudio 2017 [id number] Onset: 2017 Group Name: rizwan [phone] [address] [address] PayID: [id number] [place] [address] Workers Compensation Onset: 2014 Policy Number: [place] [employer] Tommie Zamudio [id number] PayID: [id number] [address] [address] [place] [address] Problems Date Description Provider Status Onset: 05/24/2017 Nontraumatic rupture of muscle Hannah Benoit M.D. 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 Do not take before surgery [place] 06/24/ Hx Tablets 5-325mg 30tab 1-2 by Hannah 2013 - s mouth Benoit, 07/10/ every 4 M.D. 2017 hours as needed [place] 09/04/ Hx Tablets 10-325mg 60tab 1-2 PO qid Cecil Nolen 2007 - s margareth Naranjo, 06/22/ M.D. 2013 Hydrocodone / Hx Unknown 0000 - 2016 Vital Signs Date Vital Result Comment 2017 Height 69 inches 5'9" Weight 225.00 [...] Procedures Date CPT Code Description Status 06/06/2017 39343 reinsertion ruptured biceps or triceps tendon,distal Completed with or w/o 06/06/2017 21373 reinsertion ruptured biceps or triceps tendon,distal Completed with or w/o 08/06/2014 73708 Rad Exam; Ankle Comp Completed 07/14/2014 41839 Rad Exam; Ankle Comp Completed 06/23/2014 41420 CLTX Posterior Malleolus FX W/Out Manipulation Completed 06/23/2014 53094 CLTX Posterior Malleolus FX W/Out Manipulation Completed Encounters Type Date Location Provider CPT E/M Dx Office Visit 05/24/2017 [facility] Hannah Benoit, 29767 M62.121 10:00a Of Rohit Mcclain M62.121 M62.121 Office Visit 10/16/2007 10:00a [facility] Cecil Naranjo 78363 722.10 Of Rear Load Truck Driver M.D. Office Visit 09/04/2007 9:30a [facility] Cecil Naranjo 91693 722.10 Of Rear Load Truck Driver M.D. Office Visit 07/23/2007 11:00a [facility] Cecil Naranjo 72568 722.10 Of Rear Load Truck Driver M.D. Office Visit 06/11/2007 11:30a [facility] Cecil Naranjo 98111 722.10 Of Rear Load Truck Driver M.D. Office Visit 04/09/2007 9:00a [facility] Cecil Naranjo 85314 722.10 Of Rear Load Truck Driver M.DNilsa Office Visit 02/20/2007 10:30a [facility] Cecil Naranjo 99432 722.10 Of [facility] M.DNilsa Office Visit 01/08/2007 10:30a [facility] Cecil Naranjo 42849 722.10 Of [facility] M.DNilsa Office Visit 11/27/2006 11:00a [facility] Cecil Naranjo, 34912 722.10 Of Reyes Mcclain Office Visit 10/16/2006 9:30a [facility] Cecil Naranjo, 59600 722.10 Of Reyes Mcclain Office Visit 09/04/2006 9:30a [facility] Cecil Naranjo, 59961 722.10 Of Reyes Mcclain Office Visit 07/25/2006 10:00a [facility] Cecil Naarnjo, 81886 722.10 Of Reyes Mcclain Plan of Care Future Appointment(s):07/19/2017 8:30 anup - Hannah Benoit M.D. at [facility]
[2017-07-29 09:47] VITALS: BP 151/85
[2017-07-29] MEDS ORDERED: Albuterol 2.5 MG/3 ML NEB.SOL* (0.083%) INH ONE (09:53)
--- NOTE | 2017-07-29 09:59 | UC ---
Respiratory Complaint HPI - HPI Summary HPI Summary: chest tightness x 1 week + cough , wheezing , sob no fever, no chills, has been using albuterol with no improvement - History of Current Complaint Chief Complaint: UCRespiratory Stated Complaint: CHEST ARANZA,COUGH Time Seen by Provider: 07/29/17 09:47 Hx Obtained From: Patient Onset/Duration: Gradual Onset, Lasting Days - 7, Still Present Timing: Constant Severity Initially: Moderate Severity Currently: Moderate Character: Cough: Nonproductive Aggravating Factors: Exertion, Deep Breaths Associated Signs And Symptoms: Positive: Dyspnea, Wheezing, URI. Negative: Fever, Chills, Pleuritic Chest Pain, Dizziness, Calf Pain, Calf Swelling, Edema , Nasal Congestion, Hoarseness - Allergies/Home Medications Allergies/Adverse Reactions: Allergies Allergy/AdvReac Type Severity Reaction Status Date / Time No Known Allergies Allergy Verified 07/29/17 09:47 PMH/Surg Hx/FS Hx/Imm Hx Respiratory History: Asthma - Surgical History Surgical History: Yes Surgery Procedure, Year, and Place: 06/06/2017 bicep/tendon rpr - Family History Known Family History: Positive: Unknown, Cardiac Disease, Hypertension Family History: Unspecified "breathing and heart" problems - Social History Alcohol Use: Weekly Alcohol Amount: 6 pack a week Substance Use Type: None Smoking Status (MU): Heavy Every Day Tobacco Smoker Type: Cigarettes Amount Used/How Often: 1 PPD for 20 yrs Length of Time of Smoking/Using Tobacco: 30+ Years Have You Smoked in the Last Year: Yes When Did the Patient Quit Smoking/Using Tobacco: 04/23/15 Household Exposure Type: Cigarettes - Immunization History Most Recent Influenza Vaccination: 03/26 Most Recent Tetanus Shot: within 10yrs Review of Systems Constitutional: Negative Skin: Negative Eyes: Negative ENT: Nasal Discharge Respiratory: Shortness Of Breath, Cough Cardiovascular: Negative Is Patient Immunocompromised?: No All Other Systems Reviewed And Are Negative: Yes Physical Exam Triage Information Reviewed: Yes Appearance: Well-Appearing, No Pain Distress, Well-Nourished Vital Signs: Initial Vital Signs Temp 97.5 F 07/29/17 09:43 Pulse 94 07/29/17 09:43 Resp 20 07/29/17 09:43 BP 151/85 07/29/17 09:43 Pulse Ox 97 07/29/17 09:43 Vital Signs Reviewed: Yes Eyes: Positive: Conjunctiva Clear ENT: Positive: Normal ENT inspection, Hearing grossly normal, Pharynx normal, Nasal congestion Neck exam: Normal Neck: Positive: Supple, Nontender, No Lymphadenopathy Respiratory: Positive: Chest non-tender, Respiratory distress, Decreased breath sounds, Wheezing Cardiovascular: Positive: RRR, No Murmur Skin Exam: Other UC Diagnostic Evaluation - Laboratory O2 Sat by Pulse Oximetry: 97 Respiratory Course/Dx - Differential Dx/Diagnosis Provider Diagnoses: asthma exacebation Discharge - Discharge Plan Condition: Stable Disposition: HOME Prescriptions: Albuterol 2.5MG/3ML (0.083%)* [Ventolin 2.5 MG/3 ML NEB.NORMA*] 2.5 mg INH Q4H PRN #1 box PRN Reason: Wheezing Albuterol HFA INHALER* [Ventolin HFA Inhaler*] 2 puff INH Q4H PRN #1 mdi PRN Reason: Wheezing predniSONE TAB* [Deltasone TAB*] 40 mg PO DAILY #10 tab Patient Education Materials: Asthma (ED) Forms: *Work Release Referrals: No Primary Care Phys,NOPCP [Primary Care Provider] - 3 Days
== END 2017-07-29 10:29 | disposition home or self-care (01) ==
LOC: UCCORT 09:22
DX: J45.901 Unspecified asthma with (acute) exacerbation (principal); F17.210 Nicotine dependence, cigarettes, uncomplicated
CPT/HCPCS: 99212; G0463

== ENCOUNTER 2017-12-25 11:57 | Emergency (ER) | payer BC ==
[2017-12-25 12:10] VITALS: BP 128/86
--- NOTE | 2017-12-25 12:11 | UC ---
Respiratory Complaint HPI - HPI Summary HPI Summary: 47 yo male presents with SOB and wheezing. He tells me that he has a history of bad asthma and has inhalers and a nebulizer at home. He has been using his nebulizer about 3 times a day over the past week or so, which is more than usual for him. Last night had increased chest tightness and wheezing - this morning woke up with SOB. Used his nebulizer with mild relief and went to work. Got progressively worse at work and his boss made him go to the doctor. Denies fever, chills, recent illness, chest pain, abdominal pain, n/v. - History of Current Complaint Hx Obtained From: Patient Severity Currently: None Pain Intensity: 0 <Ermias Blair - Last Filed: 12/25/17 12:58> <Tommie Hernandez - Last Filed: 12/25/17 14:19> - History of Current Complaint Chief Complaint: UCRespiratory Stated Complaint: TROUBLE BREATHING/TIGHTNESS Time Seen by Provider: 12/25/17 12:11 - Allergies/Home Medications Allergies/Adverse Reactions: Allergies Allergy/AdvReac Type Severity Reaction Status Date / Time No Known Allergies Allergy Verified 12/25/17 12:07 Home Medications: Home Medications Fluticasone/Vilanterol MDI(NF) [Breo Ellipta MDI 200/25(NF)] 1 puff INH BID [History Confirmed 12/25/17] PMH/Surg Hx/FS Hx/Imm Hx Respiratory History: Asthma GI/ History: Gastroesophageal Reflux - Surgical History Surgical History: Yes Surgery Procedure, Year, and Place: 06/06/2017 bicep/tendon rpr - Family History Known Family History: Positive: Unknown, Cardiac Disease, Hypertension Family History: Unspecified "breathing and heart" problems - Social History Occupation: Employed Full-time Lives: With Family Alcohol Use: Daily Alcohol Amount: 3 beers a day Substance Use Type: None Smoking Status (MU): Heavy Every Day Tobacco Smoker Type: Cigarettes Amount Used/How Often: 1 PPD for 20 yrs Length of Time of Smoking/Using Tobacco: 30+ Years Have You Smoked in the Last Year: Yes When Did the Patient Quit Smoking/Using Tobacco: 04/23/15 Household Exposure Type: Cigarettes - Immunization History Most Recent Influenza Vaccination: 03/26 Most Recent Tetanus Shot: within 10yrs <Ermias Blair - Last Filed: 12/25/17 12:58> Review of Systems Constitutional: Negative Skin: Negative Eyes: Negative ENT: Negative Respiratory: Shortness Of Breath, Other - Wheezing Cardiovascular: Negative Gastrointestinal: Negative Neurovascular: Negative Neurological: Negative Psychological: Negative All Other Systems Reviewed And Are Negative: Yes <Ermias Blair - Last Filed: 12/25/17 12:58> Physical Exam - Summary Physical Exam Summary: GENERAL: NAD. WDWN. No pain distress. SKIN: No rashes, sores, lesions, or open wounds. HEENT: Head: AT/NC Eyes: Conjunctiva clear without inflammation or discharge. Ears: Hearing grossly normal. TMs intact, no bulging, erythema, or edema. Nose: Nasal mucosa pink and moist. NTTP maxillary and frontal sinus. Throat: Posterior oropharynx without exudates, erythema, or tonsillar enlargement. Uvula midline. NECK: Supple. Nontender. No lymphadenopathy. CHEST: Mild wheezing throughout. No r/r. No accessory muscle use. Mildly tachypneic CV: RRR. Without m/r/g. Pulses intact. Brisk cap refill. NEURO: Alert. CN II-XII grossly intact. PSYCH: Age appropriate behavior. Triage Information Reviewed: Yes Vital Signs: Initial Vital Signs Temp 98.4 F 12/25/17 12:05 Pulse 101 12/25/17 12:05 Resp 24 12/25/17 12:05 BP 128/86 12/25/17 12:05 Pulse Ox 98 12/25/17 12:05 <Ermias Blair - Last Filed: 12/25/17 12:58> Vital Signs: Initial Vital Signs Temp 98.4 F 12/25/17 12:05 Pulse 101 12/25/17 12:05 Resp 24 12/25/17 12:05 BP 128/86 12/25/17 12:05 Pulse Ox 98 12/25/17 12:05 <Tommie Hernandez - Last Filed: 12/25/17 14:19> Diagnostic Evaluation - Laboratory O2 Sat by Pulse Oximetry: 98 <Ermias Blair - Last Filed: 12/25/17 12:58> Respiratory Course/Dx - Course Course Of Treatment: EKG 104bpm sinus tach, no ST changes as read by Dr. Hernandez. 125mg of solumedrol IM and 0.63mg levalbuterol via nebulizer given. Pt was greatly improved with less work of breathing and less wheezing in lungs. Will dc with a refill of his albuterol nebulizer solution and have him f/u with his PCP. - Differential Dx/Diagnosis Provider Diagnoses: Asthma exacerbation <Ermias Blair - Last Filed: 12/25/17 12:58> Discharge - Sign-Out/Discharge Documenting (check all that apply): Discharge/Admit/Transfer - Billing Disposition and Condition Condition: STABLE Disposition: Home <Ermias Blair - Last Filed: 12/25/17 12:58> - Billing Disposition and Condition Condition: STABLE Disposition: Home <Tommie Hernandez - Last Filed: 12/25/17 14:19> - Discharge Plan Condition: Stable Disposition: HOME Prescriptions: Albuterol 0.5% CONC NEB.NORMA* 1 mg NEB Q6H PRN #30 neb.soln PRN Reason: Sob/Wheezing Patient Education Materials: Asthma (DC) Forms: *Work Release Referrals: Yung Gordon MD [Primary Care Provider] - Additional Instructions: If you develop a fever, shortness of breath, chest pain, new or worsening symptoms - please call your PCP or go to the ED. Per institutional requirements, I have reviewed the chart, however, I was not consulted specifically or made aware of this patient by the above midlevel provider. I did not personally evaluate, interact with , or disposition this patient.
[2017-12-25] MEDS ORDERED: Levalbuterol 0.63MG/3ML NEB* UNIT OF USE INH ONE (12:14)
[2017-12-25] MEDS ORDERED: methylPREDNISolone 125 MG* 2 ML VIAL IM ONE (12:14)
== END 2017-12-25 12:55 | disposition home or self-care (01) ==
LOC: UCCORT 11:57
DX: J45.901 Unspecified asthma with (acute) exacerbation (principal); Z87.891 Personal history of nicotine dependence
CPT/HCPCS: 93005; 96372; 99212; G0463; J2930

== ENCOUNTER 2018-02-21 09:26 | Emergency (ER) | payer BC ==
[2018-02-21] MEDS ORDERED: Albuterol 2.5 MG/3 ML NEB.SOL* (0.083%) INH ONE ×2 (09:35→09:38)
[2018-02-21] MEDS ORDERED: Ipratropium 0.5MG/2.5ML NEB* 0.5 MG/2.5 ML NEB.SOLN INH ONE (09:35)
[2018-02-21] MEDS ORDERED: methylPREDNISolone 125 MG* 2 ML VIAL IM ONE (09:35)
[2018-02-21] MEDS ORDERED: methylPREDNISolone 125 MG* 2 ML VIAL ONE (09:38)
--- NOTE | 2018-02-21 10:22 | UC ---
Shortness of Breath HPI - HPI Summary HPI Summary: PT IS A SMOKER WITH H/O COPD AND ASTHMA. ONSET OF SOB AND COUGH LAST NIGHT. USED ALBUTEROL NEB WITHOUT MUCH RELIEF. FELT WORSE THIS MORNING. NO FEVER OR URI SX. - History of Current Complaint Stated Complaint: SOB ASTHMA CHEST TIGHT Time Seen by Provider: 02/21/18 09:28 Hx Obtained From: Patient Onset/Duration: Gradual Onset, Lasting Hours, Still Present Timing: Constant Current Severity: Moderate Dyspnea At: Rest Aggrevating Factors: Movement Alleviating Factors: Nothing Associated Signs & Symptoms: Positive: Cough (Nonproductive), Wheezing. Negative: Fever, Nasal Congestion - Allergy/Home Medications Allergies/Adverse Reactions: Allergies Allergy/AdvReac Type Severity Reaction Status Date / Time No Known Allergies Allergy Verified 02/21/18 09:34 Home Medications: Home Medications Blood Pressure Medication 02/21/18 [History] PMH/Surg Hx/FS Hx/Imm Hx Cardiovascular History: Hypertension Respiratory History: COPD, Asthma GI/ History: Gastroesophageal Reflux - Surgical History Surgical History: Yes Surgery Procedure, Year, and Place: 06/06/2017 bicep/tendon rpr - Family History Known Family History: Positive: Cardiac Disease, Hypertension Family History: Unspecified "breathing and heart" problems - Social History Alcohol Use: Daily Alcohol Amount: 3 beers a day Substance Use Type: None Smoking Status (MU): Heavy Every Day Tobacco Smoker Type: Cigarettes Amount Used/How Often: 1 PPD for 20 yrs Length of Time of Smoking/Using Tobacco: 30+ Years Have You Smoked in the Last Year: Yes When Did the Patient Quit Smoking/Using Tobacco: 04/23/15 Household Exposure Type: Cigarettes - Immunization History Most Recent Influenza Vaccination: 03/26 Most Recent Tetanus Shot: within 10yrs Review of Systems Constitutional: Negative Respiratory: Shortness Of Breath, Cough Cardiovascular: Negative Gastrointestinal: Negative All Other Systems Reviewed And Are Negative: Yes Physical Exam Triage Information Reviewed: Yes Appearance: No Pain Distress, Well-Nourished, Other: - BREATHING HEAVILY Vital Signs: Initial Vital Signs Temp 97.7 F 02/21/18 09:31 Pulse 119 02/21/18 09:31 Resp 24 02/21/18 09:31 BP 143/81 02/21/18 09:31 Pulse Ox 96 02/21/18 09:31 Vital Signs Reviewed: Yes Eyes: Positive: Conjunctiva Clear ENT: Positive: Hearing grossly normal Neck: Positive: Supple, Nontender, No Lymphadenopathy Respiratory: Positive: Decreased breath sounds, Wheezing - DIFFUSELY, Other: - INCREASED WOB Cardiovascular: Positive: Tachycardia Abdomen Description: Positive: Soft Musculoskeletal: Positive: No Edema Neurological: Positive: Alert Psychological: Positive: Age Appropriate Behavior Skin: Negative: rashes Re-Evaluation - Re-Evaluation First Eval Re-Evaluation Time: 10:25 - FEELS MUCH BETTER AFTER ALB/IPR NEB. LUNGS MORE OPEN AND CLEAR. READY FOR D/C Change: Improved Shortness of Breath Dx - Differential Dx/Diagnosis Provider Diagnoses: ASTHMA EXACERBATION Discharge - Sign-Out/Discharge Documenting (check all that apply): Patient Departure - Discharge Plan Condition: Stable Disposition: HOME Prescriptions: Albuterol HFA INHALER* [Ventolin HFA Inhaler*] 2 puff INH Q4H PRN #1 mdi PRN Reason: Shortness Of Breath predniSONE TAB* [Deltasone TAB*] 50 mg PO DAILY #4 tab Patient Education Materials: Asthma (ED) Forms: *Work Release Referrals: Yung Gordon MD [Primary Care Provider] - If Needed Additional Instructions: YOU FELT BETTER TODAY AFTER AN ALBUTEROL/IPRATROPIUM NEBULIZER TREATMENT AND 125 MG OF SOLU-MEDROL. CONTINUE TO USE YOUR ALBUTEROL BREATHING TREATMENTS AT HOME NEEDED. WILL GIVE ALBUTEROL INHALER FOR PORTABILITY. CONTINUE STEROIDS FOR THE NEXT 4 DAYS. FOLLOW-UP WITH YOUR PCP. GO TO THE ED WITHOUT FAIL IF YOU DEVELOP SHORTNESS OF BREATH, CHEST PAIN, NAUSEA, FEVER OR ANY OTHER CONCERNING SYMPTOMS. - Billing Disposition and Condition Condition: STABLE Disposition: Home
[2018-02-21 10:31] VITALS: BP 132/89
== END 2018-02-21 10:39 | disposition home or self-care (01) ==
LOC: UCEAST 09:26
DX: J45.901 Unspecified asthma with (acute) exacerbation (principal); I10 Essential (primary) hypertension; F17.210 Nicotine dependence, cigarettes, uncomplicated
CPT/HCPCS: 99212; G0463; J2930

== ENCOUNTER 2018-04-10 12:30 | Emergency (ER) | payer BC ==
[2018-04-10 13:05] VITALS: BP 144/91
--- NOTE | 2018-04-10 13:20 | UC ---
UC Dental HPI - HPI Summary HPI Summary: 47-year-old male coming in today with complaint of dental pain. The pain is and a left lower anterior molar. The tooth broke quite a while ago but broke again about 5 days ago. In the last 5 days the pain has been increasing and there is some drainage from the area patient feels like there is infection. Pain is moderate to severe. He's been taking ibuprofen which only helps briefly. Been having a hard time sleeping and eating secondary to the pain. - History of Current Complaint Chief Complaint: UCDentalProblem Stated Complaint: TOOTH ACHE Time Seen by Provider: 04/10/18 13:06 Pain Intensity: 9 - Allergies/Home Medications Allergies/Adverse Reactions: Allergies Allergy/AdvReac Type Severity Reaction Status Date / Time No Known Allergies Allergy Verified 04/10/18 12:57 Home Medications: Home Medications Acetaminop/Codeine 30 MG TAB* [Tylenol/Codeine 30 MG TAB*] 1 tab PO DAILY PRN [History Confirmed 04/10/18] Ibuprofen 800 mg PO DAILY 04/10/18 [History Confirmed 04/10/18] predniSONE TAB* [Deltasone TAB*] 10 mg PO DAILY 04/10/18 [History Confirmed 08/27] PMH/Surg Hx/FS Hx/Imm Hx - Additional Past Medical History Additional PMH: Chronic back pain - Surgical History Surgical History: Yes Surgery Procedure, Year, and Place: 06/06/2017 bicep/tendon repair - Family History Known Family History: Positive: Cardiac Disease, Hypertension Family History: Unspecified "breathing and heart" problems - Social History Alcohol Use: Daily Alcohol Amount: 3 beers a day Substance Use Type: None Smoking Status (MU): Heavy Every Day Tobacco Smoker Type: Cigarettes Amount Used/How Often: 1/2 ppd Length of Time of Smoking/Using Tobacco: 30+ Years Have You Smoked in the Last Year: Yes When Did the Patient Quit Smoking/Using Tobacco: 04/23/15 Household Exposure Type: Cigarettes - Immunization History Most Recent Influenza Vaccination: 03/26 Most Recent Tetanus Shot: within 10yrs Review of Systems Constitutional: Negative Skin: Negative Eyes: Negative ENT: Dental Pain Respiratory: Negative Cardiovascular: Negative Gastrointestinal: Negative Motor: Negative Neurovascular: Negative Musculoskeletal: Negative Neurological: Negative Psychological: Negative Is Patient Immunocompromised?: No All Other Systems Reviewed And Are Negative: Yes Physical Exam Triage Information Reviewed: Yes Appearance: Well-Appearing, Well-Nourished, Pain Distress - MILD Vital Signs: Initial Vital Signs Temp 98.3 F 04/10/18 13:00 Pulse 95 04/10/18 13:00 Resp 24 04/10/18 13:00 BP 144/91 04/10/18 13:00 Pulse Ox 97 04/10/18 13:00 Vital Signs Reviewed: Yes Eye Exam: Normal ENT: Positive: Dental tenderness - Left lower anterior molar has been broken off and is tender to palpation and there is gingival swelling. No obvious abscess in the cheek. Neck exam: Normal Neck: Positive: Supple Respiratory: Positive: Lungs clear, Normal breath sounds, No respiratory distress Cardiovascular: Positive: RRR Musculoskeletal Exam: Normal Musculoskeletal: Positive: Strength Intact, ROM Intact Neurological Exam: Normal Neurological: Positive: Alert, Muscle Tone Normal Psychological Exam: Normal Psychological: Positive: Age Appropriate Behavior Skin Exam: Normal Dental Complaint Course/Dx - Differential Dx/Diagnosis Provider Diagnoses: DENTAL INFECTION AND PAIN Discharge - Sign-Out/Discharge Documenting (check all that apply): Patient Departure All imaging exams completed and their final reports reviewed: No Studies - Discharge Plan Condition: Stable Disposition: HOME Prescriptions: Amoxicillin PO (*) [Amoxicillin 500 MG CAP*] 500 mg PO TID #30 cap HYDROcodone/ACETAMIN 5-325 MG* [Dania 5-325 TAB*] 1 tab PO Q4H PRN #10 tab MDD 6 PRN Reason: Pain Patient Education Materials: Toothache (ED) Referrals: Yung Gordon MD [Primary Care Provider] - Additional Instructions: FOLLOW UP WITH YOUR DENTIST. GET RECHECKED FOR ANY WORSENING OF YOUR CONDITION OR QUESTIONS OR CONCERNS. - Billing Disposition and Condition Condition: STABLE Disposition: Home
== END 2018-04-10 13:23 | disposition home or self-care (01) ==
LOC: UCEAST 12:30
DX: K04.7 Periapical abscess without sinus (principal); K08.89 Other specified disorders of teeth and supporting structures; F17.210 Nicotine dependence, cigarettes, uncomplicated
CPT/HCPCS: 99212; G0463

== ENCOUNTER 2018-05-29 08:18 | Emergency (ER) | payer SELFPAY ==
[2018-05-29 08:38] VITALS: BP 140/87
--- NOTE | 2018-05-29 09:59 | UC ---
Respiratory Complaint HPI - HPI Summary HPI Summary: left side rib pain x 5 days had some one walk on his back 5 days ago , heard a pop on his left front ribs with pain pain is getting worse over the past few days increase pain with breathing and movement better with rest, no sob , no cough , no fever - History of Current Complaint Chief Complaint: UCGeneralIllness Stated Complaint: LEFT SIDE RIB PAIN Time Seen by Provider: 05/29/18 08:35 Hx Obtained From: Patient Onset/Duration: Sudden Onset, Lasting Days - 5, Still Present Timing: Constant Severity Currently: Severe Pain Intensity: 8 Pain Scale Used: 0-10 Numeric Aggravating Factors: Exertion, Deep Breaths Alleviating Factors: Other - rest Associated Signs And Symptoms: Positive: Pleuritic Chest Pain. Negative: Dyspnea, Fever, Chills, Wheezing, Hemoptysis, Dizziness, Calf Pain, URI - Allergies/Home Medications Allergies/Adverse Reactions: Allergies Allergy/AdvReac Type Severity Reaction Status Date / Time No Known Allergies Allergy Verified 05/29/18 08:31 PMH/Surg Hx/FS Hx/Imm Hx Cardiovascular History: Hypertension Respiratory History: COPD, Asthma GI/ History: Gastroesophageal Reflux - Surgical History Surgical History: Yes Surgery Procedure, Year, and Place: 06/06/2017 bicep/tendon repair - Family History Known Family History: Positive: Cardiac Disease, Hypertension Family History: Unspecified "breathing and heart" problems - Social History Alcohol Use: Daily Alcohol Amount: 3 beers a day Substance Use Type: None Smoking Status (MU): Heavy Every Day Tobacco Smoker Type: Cigarettes Amount Used/How Often: 1 ppd Length of Time of Smoking/Using Tobacco: 30+ Years Have You Smoked in the Last Year: Yes When Did the Patient Quit Smoking/Using Tobacco: 04/23/15 Household Exposure Type: Cigarettes - Immunization History Most Recent Influenza Vaccination: 03/26 Most Recent Tetanus Shot: within 10yrs Review of Systems All Other Systems Reviewed And Are Negative: Yes Constitutional: Positive: Negative Skin: Positive: Negative Eyes: Positive: Negative ENT: Positive: Negative Cardiovascular: Positive: Negative Genitourinary: Positive: Negative Is Patient Immunocompromised?: No Physical Exam Triage Information Reviewed: Yes Appearance: Well-Appearing, Well-Nourished, Pain Distress Vital Signs: Initial Vital Signs Temp 97.4 F 05/29/18 08:33 Pulse 97 05/29/18 08:33 Resp 17 05/29/18 08:33 BP 140/87 05/29/18 08:33 Pulse Ox 99 05/29/18 08:33 Vital Signs Reviewed: Yes Eye Exam: Normal Eyes: Positive: Conjunctiva Clear ENT: Positive: Normal ENT inspection, Hearing grossly normal, Pharynx normal, Pharyngeal erythema Neck exam: Normal Neck: Positive: Supple, Nontender, No Lymphadenopathy Respiratory: Positive: Chest non-tender, Lungs clear, Normal breath sounds, Other: - left front mid ribs pain and tenderness Cardiovascular: Positive: RRR, No Murmur, Pulses Normal Abdominal Exam: Normal Abdomen Description: Positive: Nontender, Soft. Negative: CVA Tenderness (R), CVA Tenderness (L), Distended, Guarding Bowel Sounds: Positive: Present UC Diagnostic Evaluation - Laboratory O2 Sat by Pulse Oximetry: 99 Diagnostic Studies Comment: left side ribs : IMPRESSION: No radiographically apparent displaced rib fracture or pneumothorax. If the patient's symptoms persist, follow-up imaging is recommended. Respiratory Course/Dx - Differential Dx/Diagnosis Provider Diagnoses: rib pain left side Discharge - Sign-Out/Discharge Documenting (check all that apply): Patient Departure All imaging exams completed and their final reports reviewed: Yes - Discharge Plan Condition: Stable Disposition: HOME Prescriptions: Naproxen [Naproxen 500 mg tab] 500 mg PO BID #20 tablet Patient Education Materials: Thoracic Pain (ED) Forms: *Work Release Referrals: Yung oGrdon MD [Primary Care Provider] - 7 Days Additional Instructions: sprain/ strain left ribs normal xray cont. with rest, Naproxen 500 mg 2 x per day for pain follow up with your pcp in one week - Billing Disposition and Condition Condition: STABLE Disposition: Home
== END 2018-05-29 09:21 | disposition home or self-care (01) ==
LOC: UCCORT 08:18
DX: R07.81 Pleurodynia (principal); I10 Essential (primary) hypertension; J44.9 Chronic obstructive pulmonary disease, unspecified; J45.909 Unspecified asthma, uncomplicated; F17.210 Nicotine dependence, cigarettes, uncomplicated
CPT/HCPCS: 99212; G0463

== ENCOUNTER 2018-07-20 08:00 | Emergency (ER) | payer SELFPAY ==
[2018-07-20 08:06] VITALS: BP 152/90
[2018-07-20] MEDS ORDERED: Albuterol/Ipratropium NEB.SOL* Albuterol 2.5 MG/Ipratropium 0.5 MG 3 ML INH ONE (08:14)
[2018-07-20] MEDS ORDERED: predniSONE TAB* 20 MG PO ONE (08:14)
--- NOTE | 2018-07-20 08:26 | ED ---
Respiratory - HPI Summary HPI Summary: 48 yr old male with the complaint of cough for two weeks, and now SOB for three days, with sputum production. He has a history of Asthma. He feels he may have pneumonia. He has not had chest pain. He denies dizziness. He is a smoker. - History of Current Complaint Chief Complaint: UCRespiratory Stated Complaint: CONGESTION, SHORT OF BREATH Time Seen by Provider: 07/20/18 08:14 Pain Intensity: 0 - Allergy/Home Medications Allergies/Adverse Reactions: Allergies Allergy/AdvReac Type Severity Reaction Status Date / Time No Known Allergies Allergy Verified 07/20/18 08:06 PMH/Surg Hx/FS Hx/Imm Hx Endocrine/Hematology History: Denies: Hx Diabetes, Hx Thyroid Disease Cardiovascular History: Reports: Hx Hypertension Denies: Hx Congestive Heart Failure, Hx Pacemaker/ICD, Other Cardiovascular Problems/Disorders Respiratory History: Reports: Hx Asthma, Hx Chronic Obstructive Pulmonary Disease (COPD) Denies: Other Respiratory Problems/Disorders GI History: Reports: Hx Gastroesophageal Reflux Disease - on meds Denies: Hx Ulcer, Other GI Disorders Musculoskeletal History: Denies: Other Musculoskeletal History Sensory History: Reports: Hx Contacts or Glasses - glasses Denies: Hx Hearing Aid Opthamlomology History: Reports: Hx Contacts or Glasses - glasses Neurological History: Denies: Other Neuro Impairments/Disorders Psychiatric History: Reports: Hx Depression - no meds now - Surgical History Surgery Procedure, Year, and Place: 06/06/2017 bicep/tendon repair Hx Anesthesia Reactions: No Infectious Disease History: No Infectious Disease History: Denies: Hx Clostridium Difficile, Hx Hepatitis, Hx Human Immunodeficiency Virus (HIV), Hx of Known/Suspected MRSA, Hx Shingles, Hx Tuberculosis, Hx Known/ Suspected VRE, Hx Known/Suspected VRSA, History Other Infectious Disease, Traveled Outside the [place] in Last 30 Days - Family History Known Family History: Positive: Cardiac Disease, Hypertension Family History: Unspecified "breathing and heart" problems - Social History Alcohol Use: Daily Alcohol Amount: 3 beers a day Hx Substance Use: No Substance Use Type: Reports: None Hx Tobacco Use: Yes Smoking Status (MU): Heavy Every Day Tobacco Smoker Type: Cigarettes Amount Used/How Often: 1 ppd Length of Time of Smoking/Using Tobacco: 30+ Years Have You Smoked in the Last Year: Yes Review of Systems Positive: Fatigue Positive: Nasal Discharge Positive: Shortness Of Breath, Cough All Other Systems Reviewed And Are Negative: Yes Physical Exam Triage Information Reviewed: Yes Vital Signs On Initial Exam: Initial Vitals Temp Pulse Resp BP Pulse Ox 97.6 F 108 26 152/90 97 07/20/18 08:03 07/20/18 08:03 07/20/18 08:03 07/20/18 08:03 07/20/18 08:03 Vital Signs Reviewed: Yes Appearance: Positive: Well-Appearing, No Pain Distress Skin: Positive: Warm, Skin Color Reflects Adequate Perfusion Head/Face: Positive: Normal Head/Face Inspection Eyes: Positive: EOMI ENT: Positive: Normal ENT inspection Neck: Positive: Nontender Respiratory/Lung Sounds: Positive: Rales - left base Cardiovascular: Positive: RRR. Negative: Murmur Abdomen Description: Negative: Distended Musculoskeletal: Positive: Strength/ROM Intact Neurological: Positive: Sensory/Motor Intact, Alert, Oriented to Person Place, Time, CN Intact II-III Diagnostics - Vital Signs Vital Signs Temp Pulse Resp BP Pulse Ox 07/20/18 08:03 97.6 F 108 26 152/90 97 - Laboratory Lab Statement: Any lab studies that have been ordered have been reviewed, and results considered in the medical decision making process. Re-Evaluation - Re-Evaluation First Eval Re-Evaluation Time: 09:11 Change: Improved - On reevaluation the patient is much more comfortable, no SOB , lungs clear. Disposition - Course Course Of Treatment: 48 yr old male with sinusitis and asthmatic bronchitis. Rx with prednisone, biaxin and albuterol mdi - Diagnoses Provider Diagnoses: Sinusitis, Asthmatic bronchitis with acute exacerbation, Hypertension Discharge - Sign-Out/Discharge Documenting (check all that apply): Patient Departure All imaging exams completed and their final reports reviewed: Yes - Discharge Plan Condition: Good Disposition: HOME Prescriptions: Albuterol HFA INHALER* [Ventolin HFA Inhaler*] 2 puff INH Q4H PRN #1 mdi PRN Reason: Cough Clarithromycin TAB* [Biaxin 500 MG TAB*] 500 mg PO BID #20 tab predniSONE TAB* [Deltasone 20 MG TAB*] 40 mg PO DAILY #8 tab Patient Education Materials: Sinusitis (ED), Bronchospasm (ED), Hypertension ( ED) Forms: *Work Release Referrals: Yung Gordon MD [Primary Care Provider] - 2 Days - Billing Disposition and Condition Condition: GOOD Disposition: Home
== END 2018-07-20 09:18 | disposition home or self-care (01) ==
LOC: UCCORT 08:00
DX: I10 Essential (primary) hypertension (principal); J45.901 Unspecified asthma with (acute) exacerbation; F17.210 Nicotine dependence, cigarettes, uncomplicated; J32.9 Chronic sinusitis, unspecified
CPT/HCPCS: 71046; 99212; A9270-GY; G0463; J7512

== ENCOUNTER 2019-09-17 12:38 | Emergency (ER) | payer SELFPAY ==
--- NOTE | 2019-09-17 13:07 | UC ---
General HPI - HPI Summary HPI Summary: breathing difficulties since last night. no pain perse, but tightness. hx of similar sx, seen last year. Does NOT want to go to the ED. Sx started yesterday, cough and progressive shortness of breath. Feels like needs to cough sputum but can't bring anything up. Has nebulizer but no meds. 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 No recent illness. No fever / chills. No rash. No palpitations. No GI / issues - History of Current Complaint Chief Complaint: UCChestPain Stated Complaint: SHORT OF BREATH,COUGH,CHEST CONGESTION Time Seen by Provider: 09/17/19 12:42 Hx Obtained From: Patient Pain Intensity: 0 - Allergy/Home Medications Allergies/Adverse Reactions: Allergies Allergy/AdvReac Type Severity Reaction Status Date / Time No Known Allergies Allergy Verified 09/17/19 12:59 Home Medications: Home Medications Albuterol 0.5% CONC NEB.NORMA* 1 mg NEB Q6H PRN #30 neb.soln 12/25/17 [Rx Confirmed 09/17/19] Albuterol HFA INHALER* [Ventolin HFA Inhaler*] 2 puff INH Q4H PRN #1 mdi [Rx Confirmed 09/17/19] Blood Pressure Medication 1 tab DAILY 02/21/18 [History Confirmed 09/17/19] Albuterol HFA INHALER* [Ventolin HFA Inhaler*] 2 puff INH Q4H PRN #1 mdi [Rx Confirmed 09/17/19] Albuterol 2.5MG/3ML (0.083%)* [Ventolin 2.5 MG/3 ML NEB.NORMA*] 2.5 mg INH Q6H PRN #25 vial 09/17/19 [Rx] Albuterol HFA INHALER* [Ventolin HFA Inhaler*] 1 - 2 puff INH Q6H PRN #1 mdi 04/28 [Rx] Amoxicillin/Clavulanate TAB* [Augmentin TAB 875*] 875 mg PO BID #20 tab [Rx] predniSONE 10 mg TAB [Deltasone 10 MG TAB*] 10 mg PO DAILY #20 tab 09/17/19 [Rx] PMH/Surg Hx/FS Hx/Imm Hx Previously Healthy: No - see below see hpi Respiratory History: Asthma - Surgical History Surgical History: Yes Surgery Procedure, Year, and Place: 06/06/2017 bicep/tendon repair - Family History Known Family History: Positive: Cardiac Disease, Hypertension Family History: Unspecified "breathing and heart" problems - Social History Alcohol Use: Daily Alcohol Amount: Patient reports heavy drinking daily Substance Use Type: None Smoking Status (MU): Heavy Every Day Tobacco Smoker Type: Cigarettes Amount Used/How Often: 1 ppd Length of Time of Smoking/Using Tobacco: 30+ Years Have You Smoked in the Last Year: Yes When Did the Patient Quit Smoking/Using Tobacco: 04/23/15 Household Exposure Type: Cigarettes - Immunization History Most Recent Influenza Vaccination: 03/26 Most Recent Tetanus Shot: within 10yrs Review of Systems All Other Systems Reviewed And Are Negative: Yes Constitutional: Positive: Fatigue Skin: Positive: Negative Eyes: Positive: Negative ENT: Positive: Negative Respiratory: Positive: Cough Cardiovascular: Positive: Other - see hpi Gastrointestinal: Positive: Negative Genitourinary: Positive: Negative Motor: Positive: Negative Neurovascular: Positive: Negative Musculoskeletal: Positive: Negative Neurological/Mental Status: Positive: Negative Psychological: Positive: Negative Is Patient Immunocompromised?: No Physical Exam Triage Information Reviewed: Yes Appearance: Well-Nourished, Other: - sitting up, conversing in full sentances + audible wheezes looks tired. Vital Signs: Initial Vital Signs Temp 98.7 F 09/17/19 12:54 Pulse 106 09/17/19 12:54 Resp 22 09/17/19 12:54 BP 158/72 09/17/19 12:54 Pulse Ox 95 09/17/19 12:54 Eye Exam: Normal ENT: Positive: Pharynx normal, TM dull, Other - mmm Neck exam: Normal Neck: Positive: Supple Respiratory Exam: Other - BS decreased bibasilar + exp / insp wheeze, tight. Respiratory: Positive: Wheezing Cardiovascular Exam: Normal Cardiovascular: Positive: RRR, Pulses Normal, Brisk Capillary Refill Abdominal Exam: Normal Abdomen Description: Positive: Nontender Musculoskeletal Exam: Other - + evidence of chronic venous insuff changes, flaky skin mild edema Neurological Exam: Normal - grossly nonfocal Psychological Exam: Normal - nad Skin Exam: Normal - no visible or reported rash Course/Dx - Course Course Of Treatment: EKG - SR at 100bpm pr 129 qtc 465 probable LAE Reviewed CXR report with pt. See meditech. NAD. Feels better s/p solumedrol and duoneb. Declines evaluation ED re chest tightness /fatigue. Aware that he could have an undiagnosed cardiac issue, that could lead to MO / / disability. Feels much better though. Repeat albuterol x 1. Will call pcp office to arrange f/u. He is trying to decrease smoking. Work note until Monday. Questions as posed answered to the best of my ability. rx albuterol, augmentin, prednisone taper - Diagnoses Provider Diagnosis: Bronchitis, Wheezing Discharge ED - Sign-Out/Discharge Documenting (check all that apply): Patient Departure All imaging exams completed and their final reports reviewed: Yes - Discharge Plan Condition: Improved Disposition: HOME Prescriptions: Albuterol 2.5MG/3ML (0.083%)* [Ventolin 2.5 MG/3 ML NEB.NORMA*] 2.5 mg INH Q6H PRN #25 vial PRN Reason: Wheezing Albuterol HFA INHALER* [Ventolin HFA Inhaler*] 1 - 2 puff INH Q6H PRN #1 mdi PRN Reason: Wheezing Amoxicillin/Clavulanate TAB* [Augmentin TAB 875*] 875 mg PO BID #20 tab predniSONE 10 mg TAB [Deltasone 10 MG TAB*] 10 mg PO DAILY #20 tab Patient Education Materials: Acute Bronchitis (ED), Wheezing (ED) Forms: *Work Release Referrals: Yung Gordon MD [Primary Care Provider] - Additional Instructions: Follow up with your primary care physician, this week (in the next couple days if possible). Please go to the Emergency Department for any worse or new symptoms. - Billing Disposition and Condition Condition: IMPROVED Disposition: Home
[2019-09-17] MEDS ORDERED: methylPREDNISolone 125 MG* 2 ML VIAL IM ONE (13:09)
[2019-09-17] MEDS ORDERED: Albuterol/Ipratropium NEB.SOL* Albuterol 2.5 MG/Ipratropium 0.5 MG 3 ML INH ONE (13:10)
[2019-09-17] MEDS ORDERED: Albuterol 2.5 MG/3 ML NEB.SOL* (0.083%) INH ONE (14:34)
[2019-09-17 14:52] VITALS: BP 148/92
== END 2019-09-17 15:20 | disposition home or self-care (01) ==
LOC: UCEAST 12:38
DX: J45.909 Unspecified asthma, uncomplicated (principal); R06.2 Wheezing; F17.210 Nicotine dependence, cigarettes, uncomplicated
CPT/HCPCS: 71046; 93005; 96372; 99213; A9270-GY; G0463; J2930

== ENCOUNTER 2019-09-24 07:04 | Emergency (ER) | payer SELFPAY ==
--- NOTE | 2019-09-24 07:31 | ED ---
Shortness of Breath - HPI Summary HPI Summary: Patient is a 49 y/o M presenting to [facility] with a chief complaint of SOB and cough over the last week. He was recently diagnosed with bronchitis a week ago with course of Amoxicillin and Prednisone without any relief. The SOB is aggravated with exertion. He endorses chest tightness. He currently rates his symptoms 5/10 in severity. Past medical history includes asthma, COPD, HTN, GERD. Family history of respiratory and cardiac disease. Current smoker, daily EtOH, no substance use. Medications reviewed. Allergies noted. - History of Current Complaint Hx Obtained From: Patient Onset/Duration: Lasting Days, Still Present Current Severity: Moderate Dyspnea At: Exertion Aggravating Factors: Nothing Alleviating Factors: Other - exertion worsens; Amoxicillin and Prednisone without relief Associated Signs & Symptoms: Chest Pain Unrelated to Cough - Allergy/Home Medications Allergies/Adverse Reactions: Allergies Allergy/AdvReac Type Severity Reaction Status Date / Time No Known Allergies Allergy Verified 09/17/19 12:59 Home Medications: Home Medications Albuterol HFA INHALER* [Ventolin HFA Inhaler*] 1 - 2 puff INH Q6H PRN #1 mdi 04/28 [Rx Confirmed 09/24/19] Amoxicillin/Clavulanate TAB* [Augmentin TAB 875*] 875 mg PO BID #20 tab [Rx Confirmed 09/24/19] Albuterol HFA INHALER* [Ventolin HFA Inhaler*] 1 - 2 puff INH Q4H PRN #1 mdi [Rx] predniSONE [Prednisone 20 MG TAB] 40 mg PO DAILY 4 Days #8 tablet 09/24/19 [Rx] PMH/Surg Hx/FS Hx/Imm Hx Endocrine/Hematology History: Denies: Hx Diabetes, Hx Thyroid Disease Cardiovascular History: Reports: Hx Hypertension Denies: Hx Congestive Heart Failure, Hx Pacemaker/ICD, Other Cardiovascular Problems/Disorders Respiratory History: Reports: Hx Asthma, Hx Chronic Obstructive Pulmonary Disease (COPD) Denies: Other Respiratory Problems/Disorders GI History: Reports: Hx Gastroesophageal Reflux Disease - on meds Denies: Hx Ulcer, Other GI Disorders Musculoskeletal History: Denies: Other Musculoskeletal History Sensory History: Reports: Hx Contacts or Glasses - glasses Denies: Hx Hearing Aid Opthamlomology History: Reports: Hx Contacts or Glasses - glasses Neurological History: Denies: Other Neuro Impairments/Disorders Psychiatric History: Reports: Hx Depression - no meds now - Surgical History Surgical History: Yes Surgery Procedure, Year, and Place: 06/06/2017 bicep/tendon repair Hx Anesthesia Reactions: No Infectious Disease History: No Infectious Disease History: Denies: Hx Clostridium Difficile, Hx Hepatitis, Hx Human Immunodeficiency Virus (HIV), Hx of Known/Suspected MRSA, Hx Shingles, Hx Tuberculosis, Hx Known/ Suspected VRE, Hx Known/Suspected VRSA, History Other Infectious Disease, Traveled Outside the [place] in Last 30 Days - Family History Known Family History: Positive: Cardiac Disease, Hypertension, Respiratory Disease Family History: Unspecified "breathing and heart" problems - Social History Alcohol Use: Daily Alcohol Amount: Patient reports heavy drinking daily Hx Substance Use: No Substance Use Type: Reports: None Hx Tobacco Use: Yes Smoking Status (MU): Heavy Every Day Tobacco Smoker Type: Cigarettes Amount Used/How Often: 1 ppd Length of Time of Smoking/Using Tobacco: 30+ Years Have You Smoked in the Last Year: Yes Review of Systems Positive: Chest Pain - tightness Positive: Shortness Of Breath, Cough All Other Systems Reviewed And Are Negative: Yes Physical Exam - Summary Physical Exam Summary: Constitutional: Well-developed, Well-nourished, Alert. (-) Distressed Skin: Warm, Dry HENT: Normocephalic; Atraumatic Eyes: Conjunctiva normal Neck: Musculoskeletal ROM normal neck. (-) JVD, (-) Stridor, (-) Tracheal deviation Cardio: Rhythm regular, rate normal, Heart sounds normal; Intact distal pulses; The pedal pulses are 2+ and symmetric. Radial pulses are 2+ and symmetric. (-) Murmur Pulmonary/Chest wall: Effort normal. (-) Respiratory distress, (+) Expiratory wheezing during cough, (-) Rales Abd: Soft, (-) tenderness, (-) Distension, (-) Guarding, (-) Rebound Musculoskeletal: (-) Edema Lymph: (-) Cervical adenopathy Neuro: Alert, Oriented x3 Psych: Mood and affect Normal Triage Information Reviewed: Yes Vital Signs On Initial Exam: Initial Vitals Temp Pulse Resp BP Pulse Ox 98.1 F 94 18 168/103 97 09/24/19 07:21 09/24/19 07:21 09/24/19 07:21 09/24/19 07:21 09/24/19 07:21 Vital Signs Reviewed: Yes Procedures - Sedation Patient Received Moderate/Deep Sedation with Procedure: No Diagnostics - Vital Signs Vital Signs Temp Pulse Resp BP Pulse Ox 09/24/19 07:21 98.1 F 94 18 168/103 97 - Laboratory Result Diagrams: 09/24/19 07:44 09/24/19 07:44 Lab Statement: Any lab studies that have been ordered have been reviewed, and results considered in the medical decision making process. - Radiology CXR Radiology Interpretation Completed By: Radiologist Summary of Radiographic Findings: Impression: No active cardiopulmonary disease. Dr. Pham has reviewed this report. - EKG 711 Cardiac Rate: Tachycardia - 100 BPM EKG Rhythm: Sinus Tachycardia Summary of EKG Findings: An EKG at 0712 reveals sinus tachycardia at [address] ischemic changes[address] Dr. Pham has reviewed and interpreted this EKG. Re-Evaluation - Re-Evaluation First Eval Re-Evaluation Time: 08:00 Change: Improved Comment: Patient feeling better after first neb treatment. Second to be ordered. Second Eval Re-Evaluation Time: 09:00 Change: Improved Comment: Patient is feeling better. Able to ambulate well. We discussed all results and plan for discharge home. Course/Dx - Course Course Of Treatment: Patient is a 49 y/o M with asthma/COPD/HTN presenting for SOB/dyspnea on exertion and cough over the last week following dx bronchitis without relief from course of antibiotics and steroids. Associated chest tightness. Current smoker. Patient has expiratory wheezing during cough on physical examination. Patient placed on telemetry monitoring. He was initially placed on droplet/contact precautions that were then removed as patients story not seemingly consistent with COVID-19. An EKG at 0712 reveals sinus tachycardia at 100 BPM, no ischemic changes. Patient received Duoneb to moderate relief. Blood work without significant abnormalities, hemoblogin 13.8, hematocrit 40, MPV 6.6, sodium 133, BUN/creatinine ratio 24.5, glucose 125, calcium 8.3. Negative troponin. Second Duoneb also improved patients symptoms. CXR is negative. All results discussed with patient. Patient is safe for discharge. He is able to ambulate well. Patient is advised to follow up with PCP in 2-3 days. Rx for Prednisone, Albuterol inhaler. Work note given for three days. Return precautions given. Patient agreeable with plan. - Diagnoses Provider Diagnoses: Bronchitis with bronchospasm Discharge ED - Sign-Out/Discharge Documenting (check all that apply): Patient Departure - Patient will be discharged home. - Discharge Plan Condition: Stable Disposition: HOME Prescriptions: Albuterol HFA INHALER* [Ventolin HFA Inhaler*] 1 - 2 puff INH Q4H PRN #1 mdi PRN Reason: Wheezing predniSONE [Prednisone 20 MG TAB] 40 mg PO DAILY 4 Days #8 tablet Patient Education Materials: Acute Bronchitis (ED), Bronchospasm (ED) Forms: *Work Release Referrals: Yung Gordon MD [Primary Care Provider] - 3 Days Additional Instructions: Please take medications as prescribed. Follow up with your primary care provider in 2-3 days. Return to the emergency department for any new or worsening symptoms. - Billing Disposition and Condition Condition: STABLE Disposition: Home - Attestation Statements Document Initiated by Davide: Yes Documenting Scribe: Kat Almanzar Provider For Whom Eusebia is Documenting (Include Credential): Thomas Pham DO Scribe Attestation: Kat Freeman, davided for Thomas Pham DO on 09/24/19 at 1448. Scribe Documentation Reviewed: Yes Provider Attestation: The documentation as recorded by the Kat winston accurately reflects the service I personally performed and the decisions made by me, Thomas Pham DO Status of Scribtirso Document: Viewed
[2019-09-24] MEDS ORDERED: Albuterol/Ipratropium NEB.SOL* Albuterol 2.5 MG/Ipratropium 0.5 MG 3 ML INH ONE ×2 (07:36→08:02)
[2019-09-24 07:54] LABS: Hematocrit 40 % (42-52); Hemoglobin 13.8 g/dL (14.0-18.0); Mean Corpuscular HGB Conc 34 g/dL (31-36); Mean Corpuscular Hemoglobin 30 pg (27-31); Mean Corpuscular Volume 88 fL (80-94); Mean Platelet Volume 6.6 fL (7.4-10.4); Platelet Count 282 10^3/uL (150-450); Red Cell Distribution Width 13 % (10-15); White Blood Count 10.3 10^3/uL (3.5-10.8)
[2019-09-24 08:11] LABS: Albumin/Globulin Ratio 1.7 (1-3); BUN/Creatinine Ratio 24.5 (8-20); Calcium 8.3 mg/dL (8.6-10.3); EGFR African American 102.4 (>60); EGFR Non-African American 84.6 (>60); Globulin 2.4 g/dL (2-4); Total Bilirubin 0.4 mg/dL (0.2-1.0); Total Protein 6.4 g/dL (6.4-8.9)
[2019-09-24 08:14] LABS: Troponin I 0.01 ng/mL (<0.03)
[2019-09-24 08:45] LABS: ABS Basophils 0.1 10^3/ul (0-0.2); ABS Eosinophils 0.7 10^3/ul (0-0.6); ABS Lymphocytes 2.7 10^3/ul (1.0-4.8); ABS Monocytes 1.2 10^3/ul (0-0.8); ABS Neutrophils 5.7 10^3/ul (1.5-7.7); Eosinophil % 6.5 %; Lymphocyte % 25.8 %
[2019-09-24 09:01] LABS: Potassium 4.8 mmol/L (3.5-5.0)
[2019-09-24 09:42] VITALS: BP 121/84
== END 2019-09-24 09:43 | disposition home or self-care (01) ==
LOC: ED 07:04
DX: J20.9 Acute bronchitis, unspecified (principal); R06.02 Shortness of breath; K21.9 Gastro-esophageal reflux disease without esophagitis; R05 Cough; Z79.899 Other long term (current) drug therapy; F17.210 Nicotine dependence, cigarettes, uncomplicated; Z79.52 Long term (current) use of systemic steroids
CPT/HCPCS: 36415; 71046; 80053; 84484; 85025; 93005; 99283; A9270-GY; J7512